=== PATIENT | male | born 1960 | race Caucasian/White ===

== ENCOUNTER → 2016-08-08 | Outpatient (CLI) | payer BC ==
--- NOTE | 2016-08-09 08:53 | MR ---
EXAMINATION TYPE: MR ankle LT wo con, MR foot LT wo con DATE OF EXAM: 08/08/2016 9:21 PM COMPARISON: NONE HISTORY: Left ankle pain (accession [id number]), PAIN IN LEFT FOOT, HALLUX RIGIDUS LT FOOT (accession [id number]) Standard multiplanar, multisequence MRI departmental protocol Multiplanar, multisequence images of the left ankle and foot were acquired. Diffusion weighted imagin g was performed. FINDINGS: Distal Achilles tendon is not included in [id number] on sagittal images but appears with in normal limits on other sequences. Visualized plantar fascia is intact. Some increased fluid is not ed focally medially at level of mid calcaneus on axial image 11. The anterior tibiofibular and anterior talofibular ligaments are intact. Normal sinus tarsi fat is se en. The peroneus longus tendon is intact. There is split type tear of the peroneal brevis tendon seen bes t on axial images 15 through 17 just below level of the lateral malleolus which reconstitutes distall y with distal attachment maintained at base of fifth metatarsal. There is moderate tibiotalar joint effusion. There is more focal fluid surrounding the FHL at level o f the posterior talus on axial image 22. Some additional fluid surrounds the posterior tibial tendon at level of medial malleolus. Extensor tendons anteriorly are intact. Ankle mortise symmetry is preserved. Bone marrow signal inten sity is maintained. There is some spurring at anterior calcaneal articulation with the cuboid bone. T here is mild spurring throughout the cuneiforms. There is small to moderate joint fluid at first metatarsal phalangeal joint. Joint space loss with mi ld spurring laterally is present. No significant subchondral cystic change or abnormal edema seen. No suspicious dorsal osteophytes noted. Flexion or hammertoe type deformity in second through fifth toes is noted. Bone marrow signal intensi ty is preserved. Muscle bulk is maintained. No worrisome solid or cystic mass or fluid collection is identified. Lisfranc joints are maintained. IMPRESSION: 1. Moderate to severe tenosynovitis of FHL. Mild tendinosis/tenosynovitis of PT. 2. Focal split type tear of the peroneus brevis tendon. 3. Degenerative changes first metatarsophalangeal joint as noted above. Hammertoe type deformity of s econd through fifth toes is noted.
== END | disposition home or self-care (01) ==
LOC: RADMRIMAIN 20:05
PROVIDERS: ATTEND Orthopaedic Surgery
DX: M20.21 Hallux rigidus, right foot (principal); M20.22 Hallux rigidus, left foot; M77.41 Metatarsalgia, right foot; M77.42 Metatarsalgia, left foot; M21.6X1 Other acquired deformities of right foot; M21.6X2 Other acquired deformities of left foot; M65.9 Synovitis and tenosynovitis, unspecified; M20.42 Other hammer toe(s) (acquired), left foot

== ENCOUNTER → 2016-08-09 | Outpatient (CLI) | payer BC ==
--- NOTE | 2016-08-09 22:10 | MR ---
EXAMINATION TYPE: MR ankle RT wo con, MR foot RT wo con DATE OF EXAM: 08/09/2016 9:11 PM COMPARISON: NONE HISTORY: M79.671,M20.21,M77.41,M21.6X1 PAIN RT FOOT and ANKLE HALLUX Standard multiplanar, multisequence MRI departmental protocol Multiplanar, multisequence images of th e right ankle and foot were acquired. Diffusion weighted imaging was performed. FINDINGS: The Achilles tendon is intact. Small amount of fluid is seen anterior to the Achilles tendon at the c alcaneal insertion. Visualized plantar fascia is intact. No significant plantar dorsal calcaneal spur formation identified. The anterior tibiofibular and anterior talofibular ligaments are intact. Normal sinus tarsi fat is se en. The peroneus longus tendon is intact. The peroneal brevis tendon is intact. There is mild tibiotalar joint effusion. There is focal fluid surrounding the FHL at level of the po sterior talus felt to reflect tenosynovitis. Some additional fluid surrounds the posterior tibial ten don at level of medial malleolus. Extensor tendons anteriorly are intact. Ankle mortise symmetry is preserved. Bone marrow signal intensity is maintained. There is some spurri ng at anterior calcaneal articulation with the cuboid bone. There is mild spurring throughout the cun eiforms. There is small to moderate joint fluid at first metatarsal phalangeal joint. Joint space los s with mild spurring laterally is present. Mild subchondral cystic changes identified. No suspicious dorsal osteophytes noted. Flexion or hammertoe type deformity in second through fifth toes is noted. Bone marrow signal intensity is preserved. Muscle bulk is maintained. No worrisome solid or cystic ma ss or fluid collection is identified. Lisfranc joints are maintained. IMPRESSION: 1. Moderate tendinosis of FHL. 2. Degenerative changes first metatarsophalangeal joint as noted above. Hammertoe type deformity of s econd through fifth toes is noted.
== END | disposition home or self-care (01) ==
LOC: RADMRIMAIN 20:15
PROVIDERS: ATTEND Orthopaedic Surgery
DX: M20.41 Other hammer toe(s) (acquired), right foot (principal); M67.873 Other specified disorders of tendon, right ankle and foot; M77.41 Metatarsalgia, right foot; M20.21 Hallux rigidus, right foot; M21.6X1 Other acquired deformities of right foot; M20.22 Hallux rigidus, left foot; M77.42 Metatarsalgia, left foot; M21.6X2 Other acquired deformities of left foot

== ENCOUNTER → 2019-11-21 | Outpatient (CLI) | payer BC ==
--- NOTE | 2019-11-21 19:38 | CONS ---
CONSULTATION DATE OF SERVICE: 11/21/2019 This patient is a 59-year-old gentleman who has been evaluated in Sleep Center for possible obstructive sleep apnea-hypopnea syndrome. HISTORY OF PRESENT ILLNESS/SLEEP-WAKE EVALUATION: Patient's usual sleep schedule on working days is from 10 p.m. to 5:46 a.m. and on weekends from 10 or 11 p.m. until 7 or 7:10 a.m. Sometimes he has problems with falling asleep. He has a TV set in the bedroom. He usually sleeps on the side position. According to his , he snores and has episodes of stopped breathing during sleep. The patient wakes up from sleep with episodes of palpitations. In the morning the patient wakes up tired, usually does not take naps. [place] Sleepiness Scale is 4. PAST MEDICAL HISTORY: Positive for episodes of atrial fibrillation, anxiety, hypothyroidism. PAST SURGICAL HISTORY: Knee surgery. MEDICATIONS: Escitalopram, levothyroxine. SOCIAL HISTORY: Negative for smoking. Alcohol consumption is occasional. FAMILY HISTORY: Hypertension, heart problem, emphysema, cancer. REVIEW OF SYSTEMS: Awakenings from sleep around 3 times with one episode of nocturia. Tiredness during the day. PHYSICAL EXAMINATION: GENERAL: A pleasant 59-year-old gentleman without distress. VITAL SIGNS: BP 143/76, HR 62, RR 16, height 5 feet 11-1/2 inches, weight 217, BMI 29.8, temperature 98.2, oxygen saturation at room air 96%. HEENT: PERRLA, EOMI. Evaluation of oropharynx showed tongue protrudes midline. Low position of soft palate. Mallampati III to IV. NECK: Supple. No JVD. Thyroid is not palpable. Neck measures 16 inches in circumference. LUNGS: Clear to percussion and to auscultation. Good air exchange. No wheezing or rhonchi. HEART: S1, S2 regular. No murmurs, gallops or rubs. ABDOMEN: Soft and nontender. Bowel sounds are present. No organomegaly. EXTREMITIES: No clubbing or cyanosis. COST CONSULTANT: Awake, alert, and oriented X3. Cranial nerves 2 to 7 intact. There is no fasciculation or atrophy. noted. No focal deficits observed. IMPRESSION: 1. Snoring, witnessed episodes of stopped breathing during sleep, low position of soft palate; obstructive sleep apnea-hypopnea syndrome. 2. History of atrial fibrillation. 3. Overweight. 4. Hypothyroidism. 5. Anxiety. 6. Status post knee surgery. PLAN: 1. Home sleep apnea test for evaluation of patient's breathing during sleep. 2. CPAP/BiPAP titration if sleep study confirms obstructive sleep apnea-hypopnea syndrome. 3. Preferable position during sleep on the side. 4. No driving if patient feels any sleepiness. 5. I will see patient for follow up visit to explain results of testing and following plan. Thank you very much for referring this patient for consultation. Sincerely, Jonathan Swan MD, PhD, FAASM Diplomat of [employer] Board of [employer] Medicine Rn Digestive of [facility] [place] MMODL / IJN: [id number] /
== END | disposition home or self-care (01) ==
LOC: SLEEP 15:49
PROVIDERS: ATTEND Internal Medicine
DX: G47.33 Obstructive sleep apnea (adult) (pediatric) (principal); E03.9 Hypothyroidism, unspecified; F41.9 Anxiety disorder, unspecified; E66.3 Overweight; Z79.899 Other long term (current) drug therapy; Z86.79 Personal history of other diseases of the circulatory system
CPT/HCPCS: 99211

== ENCOUNTER → 2020-02-20 | Outpatient (CLI) | payer BC ==
--- NOTE | 2020-02-21 01:02 | SFUN ---
SLEEP CENTER FOLLOW UP NOTE DATE OF SERVICE: 02/20/2020 This 59-year-old gentleman has been followed in Sleep Center for treatment of obstructive sleep apnea-hypopnea syndrome. Recently, patient had home sleep apnea test which showed apnea-hypopnea index 24.4 with oxygen desaturation to 83% and patient was started on treatment with auto PAP therapy. Today is his first visit while he is on treatment with CPAP. Patient feels better with CPAP, using it every night. Sometimes has a little bit problem with full-face mask because it might have a little bit leak to the eye area. Otherwise, again, he feels better. [place] Sleepiness Scale today is 2. I checked CPAP unit, it is an automatic regimen with a pressure range of 5 to 20 cm of water. Average pressure 9.6 cm of water. Usage is 27 out of 30 nights more than 4 hours. Average usage is 6.2 hours per night. Leak is up to 37 L/minute. At the same time, apnea-hypopnea index only 1.5, which is perfect. MEDICATIONS: Escitalopram, levothyroxine. PHYSICAL EXAMINATION: GENERAL: Patient in no distress. VITAL SIGNS: BP 146/89, HR 61, RR 15, weight 220.2, temperature 98.1, oxygen saturation at room air 97%. HEENT: PERRLA, EOMI. Oropharynx low position of soft palate. Mallampati 3-4. NECK: Supple, no JVD. Thyroid is not palpable. LUNGS: Clear to percussion and to auscultation. Good air exchange. No wheezing or rhonchi. HEART: S1, S2 regular. No murmurs, gallops, or rubs. ABDOMEN: Soft and nontender. Bowel sounds are present. No organomegaly appreciated. EXTREMITIES: No clubbing or cyanosis. DIGITAL MARKETING EXECUTIVE: Awake, alert, and oriented X3. Cranial nerves 2 to 7 intact. There is no fasciculation or atrophy. noted. No focal deficits observed. IMPRESSION: 1. Obstructive sleep apnea-hypopnea syndrome; apnea-hypopnea index 24.4 on control with auto PAP. The patient demonstrated good compliance with treatment, benefitting from treatment. 2. History of atrial fibrillation. 3. Hypothyroidism. 4. Anxiety. 5. Status post knee surgery. 6. Some overweight. PLAN: 1. I decreased maximal level of CPAP pressure range down to 14. 2. I adjusted humidity slightly up to the level of 5. 3. I discussed with the patient the possibility to use a different style of full face mask which goes under the nose and covers the mouth like Amanda Sena. 4. Patient will continue to use PAP equipment every night for the whole night. 5. Sleep hygiene with regular time in bed for at least 7-1/2 to 8 hours. 6. Precautions related to driving. No driving if feeling sleepiness. 7. I will maintain all necessary prescription for PAP supplies including mask, tube, filters. 8. Watching weight. 9. No driving if feeling sleepiness. 10.Follow-up visit in 6 months or earlier if patient has any problems. Thank you very much for allowing me to participate in management of your patient. Sincerely, Jonathan Swan MD, PhD, FAASM Diplomat of [employer] Specialties [employer] Board of Internal Medicine Bookbinder Apprentice of [facility] [place] MMJONATHANL / JONATHONN: [id number] /
== END | disposition home or self-care (01) ==
LOC: SLEEP 16:33
PROVIDERS: ATTEND Internal Medicine
DX: G47.33 Obstructive sleep apnea (adult) (pediatric) (principal); E66.3 Overweight; E03.9 Hypothyroidism, unspecified; F41.9 Anxiety disorder, unspecified; Z98.890 Other specified postprocedural states; Z86.79 Personal history of other diseases of the circulatory system; Z99.89 Dependence on other enabling machines and devices

== ENCOUNTER → 2020-06-19 | Outpatient (CLI) | payer BC ==
--- NOTE | 2020-06-21 00:21 | MR ---
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 Multiplanar multiecho imaging of the left foot was performed without contrast. The metatarsals are intact. The toes appear intact. I see no focal bone destruction. The tarsal bones are intact. There is no evidence of a fracture. There is mild spurring at the talonavicular joint. T he subtalar joint is intact. Achilles tendon and plantar fascia appear intact. There is diffuse soft tissue edema involving the forefoot. This is more noticeable around the second and third and fourth distal metatarsals. The medial and lateral flexor tendons of the ankle appear in tact. There is some fluid around the flexor pollicis tendon. There is a mild ankle joint effusion. Th ere is focal small area of edema in the inferior talus at the subtalar joint. IMPRESSION: There is forefoot soft tissue edema. This appears similar to old exam. There is fluid around the flex or pollicis tendon not significantly different than old exam. There is mild ankle joint effusion also not significantly different. This is consistent with multifocal nonspecific synovitis. There is small area of edema measuring 8 mm in the lateral inferior talus at the subtalar joint consi stent with degenerative phenomenon. This appears new compared to old exam.
== END ==
LOC: RADMRIMAIN 20:48
PROVIDERS: ATTEND Orthopaedic Surgery
DX: R60.0 Localized edema (principal)

== ENCOUNTER → 2020-09-03 | Outpatient (CLI) | payer BC ==
--- NOTE | 2020-09-04 09:37 | SFUN ---
SLEEP CENTER FOLLOW UP NOTE DATE OF SERVICE: 09/03/2020 This 60-year-old gentleman has been followed in the Sleep Center for treatment of obstructive sleep apnea-hypopnea syndrome. Patient continued to use his CPAP equipment every night for the whole night. He has some discomfort with the full-face mask. He is using masks which covers the mouth and goes under the nose, but the part which goes under the nose has leaked. Otherwise, he sleeps well. No snoring. [place] Sleepiness Scale is only 4, which is normal. I checked his CPAP unit. Range of the pressure 5 to 14, average pressure 13.5, usage 29/30 nights for more than 4 hours, average 5.3 hours per night. Leak is 18 L/minute. Apnea-hypopnea index is 1.2, which is totally normal. MEDICATIONS: Citalopram 5 mg once a day, levothyroxine 50 mcg once a day. PHYSICAL EXAMINATION: GENERAL: Patient is in no distress. VITAL SIGNS: BP 132/65, HR 62, RR 15, height 5 feet 11 inches, weight 220, body mass index 30.6, temperature 98.5, oxygen saturation at room air 96%. HEENT: PERRLA, EOMI. Oropharynx low position of soft palate. Mallampati 3-4. NECK: Supple, no JVD. Thyroid is not palpable. LUNGS: Clear to percussion and to auscultation. Good air exchange. No wheezing or rhonchi. HEART: S1, S2 regular. No murmurs, gallops, or rubs. ABDOMEN: Soft and nontender. Bowel sounds are present. No organomegaly appreciated. EXTREMITIES: No clubbing or cyanosis. SURFACE WATER MANAGER: Awake, alert, and oriented X3. Cranial nerves 2 to 7 intact. There is no fasciculation or atrophy. noted. No focal deficits observed. IMPRESSION: 1. Obstructive sleep apnea-hypopnea syndrome. Original apnea-hypopnea index 24.4 on full control with CPAP. The patient demonstrated great compliance with treatment, benefitting from treatment. 2. Some discomfort with full face mask and leak. 3. History of atrial fibrillation. 4. Hypothyroidism. 5. Anxiety. 6. Status post knee surgery. 7. Mild obesity, body mass index 30.6. PLAN: 1. We fitted the patient with AirFit F20 full face mask and looks that it fits better than his present mask. 2. Patient will continue to use PAP equipment every night for the whole night. 3. Sleep hygiene with regular time in bed for at least 7-1/2 to 8 hours. 4. Precautions related to driving. No driving if feeling sleepiness. 5. I will maintain all necessary prescription for PAP supplies including mask, tube, filters. 6. Watching weight. 7. Follow-up visit in 6 months or earlier if patient has any problems. I spent with the patient in documentation for the visit more than 30 minutes. Thank you very much for allowing me to participate in management of your patient. Sincerely, Jonathan Swan MD, PhD, FAASM Diplomat of [employer] [employer] Specialties [employer] [employer] of Internal Medicine Bill Poster Installer of [facility] [place] MMODL / JONATHONN: [id number] /
== END ==
LOC: SLEEP 16:42
PROVIDERS: ATTEND Internal Medicine
DX: G47.33 Obstructive sleep apnea (adult) (pediatric) (principal); I48.91 Unspecified atrial fibrillation; E03.9 Hypothyroidism, unspecified; F41.9 Anxiety disorder, unspecified; E66.9 Obesity, unspecified; Z68.30 Body mass index [BMI] 30.0-30.9, adult; Z98.890 Other specified postprocedural states; Z79.890 Hormone replacement therapy; Z79.899 Other long term (current) drug therapy

== ENCOUNTER → 2021-06-17 | Outpatient (CLI) | payer BC ==
--- NOTE | 2021-06-17 18:41 | SFUN ---
SLEEP CENTER FOLLOW UP NOTE DATE OF SERVICE: 06/17/2021 This 60-year-old gentleman has been followed in Sleep Center for treatment of obstructive sleep apnea-hypopnea syndrome. The patient continues to use CPAP equipment every night and feels that the pressure in his CPAP unit is now slightly less than before. Otherwise, he sleeps well. No snoring. [place] Sleepiness Scale today is 2. I checked his CPAP unit. Range of the pressure is 5 to 14, average pressure 13.4. Usage is 29/30 nights for more than 4 hours, average 6.2 hours per night, which is good compliance. Leak is 26 L/minute, which is borderline. Apnea-hypopnea index is only 1.0, which is absolutely normal. MEDICATIONS: 1. Escitalopram 5 mg once a day. 2. Levothyroxine 50 mcg once a day. PHYSICAL EXAMINATION: GENERAL: Pleasant patient in no distress. VITAL SIGNS: BP 168/93, HR 62, RR 16, height 6 feet 0 inches, weight 232, BMI 31.4, temperature 98.4, oxygen saturation 98%. HEENT: PERRLA, EOMI, evaluation of oropharynx showed tongue protrudes midline. Low position of soft palate; Mallampati III to IV. NECK: Supple, no JVD. Thyroid is not palpable. LUNGS: Clear to percussion and to auscultation. Good air exchange. No wheezing or rhonchi. HEART: S1, S2 regular. No murmurs, gallops, or rubs. ABDOMEN: Soft and nontender. Bowel sounds are present. No organomegaly appreciated. EXTREMITIES: No clubbing or cyanosis. MONUMENT INSTALLER: Awake, alert, and oriented X3. Cranial nerves 2 to 7 intact. There is no fasciculation or atrophy. noted. No focal deficits observed. IMPRESSION: 1. Obstructive sleep apnea-hypopnea syndrome. Original apnea-hypopnea index 24.4. The patient demonstrated practically 100% compliance with treatment, benefitting from treatment. 2. Hypertension in the office. 3. History of atrial fibrillation episodes. No recent episodes. 4. Hypothyroidism. 5. Anxiety. 6. Status post knee surgical treatment bilaterally. 7. Status post bilateral foot surgery. PLAN: 1. Patient will continue to use PAP equipment every night for the whole night. 2. Sleep hygiene with regular time in bed for at least 7-1/2 to 8 hours. 3. Precautions related to driving. No driving if feeling sleepiness. 4. I will maintain all necessary prescription for PAP supplies including mask, tube, filters. 5. Watching weight. 6. Follow-up visit in 6 months or earlier if patient has any problems. Thank you very much for allowing me to participate in the management of your patient. Sincerely, Jonathan Swan MD, PhD, FAASM Diplomat of [place] [employer] Medical Specialties Sleep Medicine Board of [place] Board of Internal Medicine Physical Therapy Aides Teacher of [facility] [place] MMODL / DARLENE: [id number] /
== END ==
LOC: SLEEP 16:30
PROVIDERS: ATTEND Internal Medicine
DX: G47.33 Obstructive sleep apnea (adult) (pediatric) (principal); I10 Essential (primary) hypertension; I48.91 Unspecified atrial fibrillation; E03.9 Hypothyroidism, unspecified; F41.9 Anxiety disorder, unspecified; Z98.890 Other specified postprocedural states; Z79.890 Hormone replacement therapy; Z79.899 Other long term (current) drug therapy

== ENCOUNTER → 2022-01-06 | Outpatient (CLI) | payer BC ==
--- NOTE | 2022-01-06 16:55 | P.PN ---
Subjective DATE: 01/06/2022 FOLLOW UP VISIT. Patient with obstructive sleep apnea hypopnea syndrome return to sleep center for follow-up visit. Information from previous visit have been reviewed. Patient is using PAP equipment every night for the whole night, getting PAP supplies in time. The patient does not have significant problems with the mask, PAP unit and humidification. [place] sleepiness scale is 4. I checked PAP unit. PAP unit pressure 5-14, average 13.5 cm H2O. Usage is 95 % for more then 4 hours, average 5.3 hours per night. Leak is 10 l/m, which is in acceptable range. Apnea Hypopnea Index is 2.0, which is normal. MEDICATIONS:1. Esitalopram 5 mg once a day 2. Levothyroxine 50 g once a day During physical exam: GENERAL: A pleasant patient without any distress. VITAL SIGNS: BP 132/81, HR 71, RR 14 , weight 231, height 6 foot and 0 inches, oxygen saturation at room air 95 % . HEENT: PERRLA, EOMI.low position of soft palate, Mallapati 3-4 . NECK: Supple. No JVD. LUNGS: Clear to percussion and to auscultation. Good air exchange. No wheezing or rhonchi. HEART: S1, S2 regular. ABDOMEN: Soft and nontender.[] EXTREMITIES: No clubbing or cyanosis. SLOT FLOOR SUPERVISOR: Awake, alert, and oriented x3. No focal deficit. Impressions: 1. Obstructive sleep apnea-hypopnea syndrome. Patient demonstrated great compliance with treatment, benefiting from treatment. 2. History of lateral fibrillation episodes. No recent episodes. 3. Hypothyroidism. 4. Anxiety. 5. Status post bilateral knee surgery. 6. Status post bilateral foot surgery. Plan: 1. Continue using PAP equipment every night for the whole night. 2. To change air filter at least 1-2 times per month. 3. PAP unit should stay lower then position of the head. 4. Advised patient to remove all remaining water from humidifier canister daily and make it dry after each usage. Refill canister with fresh distilled water before each usage. 5. Sleep hygiene with regular time in bed for at least 8 hours. 6. Precautions related to driving. No driving if feel any sleepiness. 7. I will maintain prescription for PAP supplies including mask, tube, filters. 8. Follow up visit in 6 months or earlier if patient has any problems. 9. Watching weight. Thank you very much for allowing me to participate in the management of your patient. Jonathan Swan MD, PhD, FAASM. Diplomat of [place] [employer] Sleep Medicine, Sleep Medicine Board by [place] [employer] of Internal Medicine Licensed Weigher of [facility] [place]
== END ==
LOC: SLEEP 16:20
PROVIDERS: ATTEND Internal Medicine
DX: G47.33 Obstructive sleep apnea (adult) (pediatric) (principal); Z99.89 Dependence on other enabling machines and devices; E03.9 Hypothyroidism, unspecified; F41.9 Anxiety disorder, unspecified; Z98.890 Other specified postprocedural states; Z79.890 Hormone replacement therapy; Z86.79 Personal history of other diseases of the circulatory system; Z79.899 Other long term (current) drug therapy

== ENCOUNTER → 2022-10-06 | Outpatient (CLI) | payer BC ==
--- NOTE | 2022-10-06 17:28 | P.PN ---
Subjective DATE: 10/06/2022 FOLLOW UP VISIT. Patient with obstructive sleep apnea hypopnea syndrome return to sleep center for follow-up visit. Information from previous visit have been reviewed. Patient had been planned by arabic translator team for cardiac ablation procedure for atrial flutter. Patient is using PAP equipment every night for the whole night, getting PAP supplies in time. The patient does not have significant problems with the mask, PAP unit. Patient is experiencing dryness in his mouth while using CPAP. [place] sleepiness scale is 5, which is normal. I checked information from PAP unit. PAP unit pressure 5-14, average pressure 13.8 cm H2O. Usage is 87 % for more then 4 hours, average 5.7 hours per night. Leak is increased to 32.6 l/m. Apnea Hypopnea Index is average for the last months 5.4, but for last several nights significantly increased to about 20. MEDICATIONS:1. Levothyroxine 50 g once a day 2. Metoprolol 100 mg twice a day 3. Escitalopram 10 mg once a day 4. Rosuvastatin 5 mg once a day 5. Eliquis 5 mg twice a day During physical exam: GENERAL: A pleasant patient without any distress. VITAL SIGNS: BP 100/73, HR 124, RR 12 , weight 233, temperature 96.7, oxygen saturation at room air 97 % . HEENT: PERRLA, EOMI.low position of soft palate, Mallapati 3-4 . NECK: Supple. No JVD. LUNGS: Clear to percussion and to auscultation. Good air exchange. No wheezing or rhonchi. HEART: S1, S2 regular. ABDOMEN: Soft and nontender.[] EXTREMITIES: No clubbing or cyanosis. MILK RECEIVER TANK TRUCK: Awake, alert, and oriented x3. No focal deficit. Impressions: 1. Obstructive sleep apnea-hypopnea syndrome. Patient demonstrated great compliance with treatment, benefiting from treatment, but apnea-hypopnea index significantly increased for last several nights. 2. Atrial flutter. 3. History of hypothyroidism. 4. History of anxiety. 5. Status post bilateral knee surgery. 6. Status post bilateral foot surgery. 7. Patient increased his weight on several pounds since previous visit. Plan: 1. Continue using PAP equipment every night for the whole night. 2. I increased range of the pressure in the CPAP unit to 5-16 centimeters of water. 3. Humidity level was increased to level of 6. Tube temperature was increased to 80. 4. Follow up visit in 2 weeks. Thank you very much for allowing me to participate in the management of your patient. Jonathan Swan MD, PhD, FAASM. Diplomat of [place] [employer] Medicine, Sleep Medicine Board by [place] [employer] of [employer] Medicine Science Education Professor of [facility] [place]
== END ==
LOC: 3 N SLEEP 16:23
PROVIDERS: ATTEND Internal Medicine
DX: G47.33 Obstructive sleep apnea (adult) (pediatric) (principal); E03.9 Hypothyroidism, unspecified; I48.92 Unspecified atrial flutter; F41.9 Anxiety disorder, unspecified; Z96.653 Presence of artificial knee joint, bilateral; Z98.890 Other specified postprocedural states; Z99.89 Dependence on other enabling machines and devices; Z79.890 Hormone replacement therapy; Z79.899 Other long term (current) drug therapy

== ENCOUNTER → 2022-10-27 | Outpatient (CLI) | payer BC ==
--- NOTE | 2022-10-27 17:57 | P.PN ---
Subjective DATE: 10/27/2022 FOLLOW UP VISIT. Patient with obstructive sleep apnea hypopnea syndrome return to sleep center for follow-up visit. I saw patient 2 weeks ago. At that time because apnea-hypopnea index significantly increased from 4 several months ago to around 20 per hour I changed level of CPAP pressure from 514 to 516 centimeters of water. [place] sleepiness scale today is 3, which is normal. I checked information from PAP unit. PAP unit pressure 5-16, average 13.8 cm H2O. Usage is 100 % for more then 4 hours, average 5 hours per night. Leak is high 35 l/m. Apnea Hypopnea Index is significantly increased to 20.2, which include 3.1 central events per hour, 6.6 obstructive events, 10.4 unknown and 2.1 RERA. MEDICATIONS:1. Metoprolol 100 mg twice a day 2. Escitalopram 10 mg once a day 3. Eliquis 5 mg twice a day 4. Rosuvastatin 5 mg once a day 5. Levothyroxine 50 g once a day During physical exam: GENERAL: A pleasant patient without any distress. VITAL SIGNS: BP 112/80, HR 127, RR 12, weight 233, temperature 97.3, oxygen saturation at room air 96 % . HEENT: PERRLA, EOMI.low position of soft palate, Mallapati 3 . NECK: Supple. No JVD. LUNGS: Clear to percussion and to auscultation. Good air exchange. No wheezing or rhonchi. HEART: S1, S2 . irregular. ABDOMEN: Soft and nontender.[] EXTREMITIES: No clubbing or cyanosis. LAMP SHADES SUPERVISOR: Awake, alert, and oriented x3. No focal deficit. Impressions: 1. 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 Central component possibly secondary to cardiac arrhythmia. Patient demonstrated great compliance with treatment. 2. Atrial flutter, patient is preparing for cardiac ablation procedure. 3. History of hypothyroidism. 4. History of anxiety. 5. Status post bilateral knee surgery. 6. Status post bilateral foot surgery. Plan: 1. PAP titration for correction of respiratory abnormalities during sleep, patient may need BiPAP ST mode therapy for correction of central abnormalities of respiration. Patient is on treatment with AutoPap, never had Pap titration. 2. Continue using PAP equipment every night for the whole night. 3. PAP unit should stay lower then position of the head. 4. Advised patient to remove all remaining water from humidifier canister daily and make it dry after each usage. Refill canister with fresh distilled water b efore each usage. 5. Sleep hygiene with regular time in bed for at least 8 hours. 6. Precautions related to driving. No driving if feel any sleepiness. 7. I will maintain prescription for PAP supplies including mask, tube, filters. 8. Follow up visit to discuss results of sleep test after titration. Thank you very much for allowing me to participate in the management of your patient. Jonathan Swan MD, PhD, FAASM. Diplomat of [place] [employer], Sleep Medicine Board by [place] [employer] Licensed Optician of [facility] [place]
== END ==
LOC: 3 N SLEEP 16:31
PROVIDERS: ATTEND Internal Medicine
DX: G47.33 Obstructive sleep apnea (adult) (pediatric) (principal); I48.92 Unspecified atrial flutter; E03.9 Hypothyroidism, unspecified; F41.9 Anxiety disorder, unspecified; Z98.890 Other specified postprocedural states; Z99.89 Dependence on other enabling machines and devices; Z79.01 Long term (current) use of anticoagulants; Z79.890 Hormone replacement therapy; Z79.899 Other long term (current) drug therapy
CPT/HCPCS: 99212

== ENCOUNTER 2022-11-07 08:46 | Day surgery (SDC) | payer BC ==
[2022-11-03 13:21] VITALS: BMI 30.4
[~2022-11-07 08:46] MED LIST: LACTATED RINGERS 1,000 ML IV SCH; SODIUM CHLORIDE 0.9% 1,000 ML IV SCH
[2022-11-07] MEDS ORDERED: GLYCOPYRROLATE 0.2 MG/ML 2 ML VIAL ONE (10:29)
[2022-11-07] MEDS ORDERED: HEPARIN SODIUM,PORCINE 10,000 UNIT/ML 1 ML VIAL ONE (10:29)
[2022-11-07] MEDS ORDERED: ISOPROTERENOL 250 MCG/1.25 ML SYR IV ONE (10:29)
[2022-11-07] MEDS ORDERED: fentaNYL (PF) 50 MCG/ML 2 ML AMP ONE (10:29)
[2022-11-07] MEDS ORDERED: ROCURONIUM 10 MG/ML (5 ML VIAL) IV ONE (10:29)
[2022-11-07] MEDS ORDERED: NEOSTIGMINE 1 MG/ML 10 ML VIAL ONE (10:29)
[2022-11-07] MEDS ORDERED: LIDOCAINE 2% INJ 20 MG/ML (2 ML VIAL) ONE (10:29)
[2022-11-07] MEDS ORDERED: PHENYLEPHRINE-0.9% NACL SYG 1,000 MCG/10 ML SYRINGE ONE (10:29)
[2022-11-07] MEDS ORDERED: SUCCINYLCHOLINE CHLORIDE 200 MG/10 ML VIAL IV ONE (10:29)
[2022-11-07] MEDS ORDERED: MIDAZOLAM 2 MG/2 ML VIAL ONE (10:29)
[2022-11-07] MEDS ORDERED: PROPOFOL 10 MG/ML 20 ML VIAL IV ONE (10:29)
[2022-11-07] MEDS ORDERED: LIDOCAINE 1% INJ 10MG/ML (30 ML VIAL-PF) SQ ONE (11:14)
[2022-11-07] MEDS ORDERED: HEPARIN SODIUM (1,000 UNIT/ML) 1,000 UNIT in SODIUM CHLORIDE 0.9% 1,000 ML IRRIGATION ONE (12:41)
[2022-11-07] MEDS ORDERED: ACETAMINOPHEN IV (For NPO) 1,000 MG in EMPTY BAG 1 BAG IVPB ONE (13:11)
[2022-11-07] MEDS ORDERED: ACETAMINOPHEN TAB 325 MG TAB PO PRN (13:11)
--- NOTE | 2022-11-07 13:20 | P.HPCAR ---
History of Present Illness This is Dr. Rosado dictating an H/P on this patient The patient was interviewed and examined IMPRESSION / ASSESSMENT: Typical atrial flutter with RVR despite high dose metoprolol Inability to control heart rates Symptomatic with shortness of breath Paroxysmal atrial fibrillation on flecainide 100 mg twice daily Hypertension Obstructive sleep apnea, AHI around 24 PLAN: Proceed with atrial flutter ablation Continue flecainide thereafter Continue ELIQUIS for at least 2-3 months Continue sleep apnea management with CPAP HPI Patient's heart rates remained elevated despite metoprolol taken 4 times a day Shortness of breath but no chest discomfort or loss of consciousness He has had no fever chills cough expectoration ROS: No fever chills or rigors, no cough, phlegm or expectoration, no nausea, vomiting or diarrhea, no hematuria, dysuria, no musculoskeletal complaints, no strokes or seizures, no skin lesions. EXAMINATION: Heart rate 130 beats a minute at rest respirations normal blood pressure 120 May 23. His mercury Heart sounds are tachycardic no murmurs Lungs sounds are clear no rhonchi no crackles No JVD No lower extremity edema REVIEW OF LABS, ECG & MEDICAL DATA Currently on ELIQUIS and metoprolol Physical Exam Vitals: Vital Signs Pulse Resp BP Pulse Ox 11/07/22 09:21 129 H 18 125/86 98 Intake and Output 11/06/22 11/07/22 11/07/22 22:59 06:59 14:59 Intake Total 1219 Balance 1219 Intake: IV 1219 Other: Weight 104.6 kg Past Medical History Past Medical History: Atrial Fibrillation, Eye Disorder, Hyperlipidemia, Hy pertension, Osteoarthritis (OA), Sleep Apnea/CPAP/BIPAP, Thyroid Disorder Additional Past Medical History / Comment(s): Slight macular degeneration. Uses CPAP. History of Any Multi-Drug Resistant Organisms: None Reported Past Surgical History: Orthopedic Surgery Additional Past Surgical History / Comment(s): Bilateral foot surgery, bilateral knee surgery, colonoscopy. Past Anesthesia/Blood Transfusion Reactions: No Reported Reaction Past Psychological History: Anxiety Smoking Status: Never smoker Past Alcohol Use History: Daily Additional Past Alcohol Use History / Comment(s): Normally has 1 drink daily, however has had no alcohol in the last 6 weeks. Past Drug Use History: None Reported - Past Family History Father Family Medical History: Cancer Additional Family Medical History / Comment(s): Colon cancer. Physical Examination Vital Signs Pulse Resp BP Pulse Ox 11/07/22 09:21 129 H 18 125/86 98 Intake and Output 11/06/22 11/07/22 11/07/22 22:59 06:59 14:59 Intake Total 1219 Balance 1219 Intake: IV 1219 Other: Weight 104.6 kg Results Current Medications Generic Name Dose Route Start Last Admin Trade Name Freq PRN Reason Stop Dose Admin Acetaminophen 650 mg 11/07/22 13:11 Acetaminophen Tab 325 Mg Tab PO 12/07/22 13:12 Q6HR PRN Mild Pain (Scale 1 to 3) Apixaban 5 mg 11/07/22 21:00 Apixaban 5 Mg Tab PO 12/07/22 21:01 BID [facility] Protocol Flecainide Acetate 50 mg 11/07/22 21:00 Flecainide 50 Mg Tab PO 12/07/22 21:01 Q12HR [facility]OL[facility] Acetaminophen 1,000 mg/ IV 100 mls @ 400 mls/hr 11/07/22 13:11 Solution IVPB 11/07/22 13:25 ONCE ONE Levothyroxine Sodium 50 mcg 11/08/22 09:00 Levothyroxine 50 Mcg Tab PO 12/08/22 09:01 DAILY [facility] Losartan Potassium 25 mg 11/08/22 09:00 Losartan 25 Mg Tab PO 12/08/22 09:01 DAILY [facility] Metoprolol Tartrate 25 mg 11/07/22 21:00 Metoprolol Tartrate 50 Mg Tab PO 12/07/22 21:01 BID [facility] Non-Formulary Medication 5 mg 11/07/22 21:00 Rosuvastatin Calcium [Rosuvastatin Calcium] PO 12/07/22 21:01 HS [facility] Sodium Chloride 12 ml 11/07/22 13:11 Sodium Chloride 0.9% Flush 10 Ml Syringe IV 12/07/22 13:12 Q12HR PRN Line Flush Intake and Output 11/06/22 11/07/22 11/07/22 22:59 06:59 14:59 Intake Total 1219 Balance 1219 Intake: IV 1219 Other: Weight 104.6 kg Patient Weight 11/08/22 06:59 Weight 104.6 kg
--- NOTE | 2022-11-07 13:26 | P.EPPROC ---
- EP Procedure Note Electrophysiology Procedure Note: Diagnosis Typical atrial flutter with RVR, difficult rate control despite high dose of metoprolol 4 times a day Paroxysmal atrial fibrillation, on flecainide Hypertension, sleep apnea Final results Typical atrial flutter confirmed with entrainment mapping Successful radio frequency ablation, complete bidirectional block with differential pacing Biatrial enlargement, preserved LV systolic function, on intracardiac echo No left atrial appendage thrombus, large left atrial appendage on intracardiac echo Long cavo tricuspid isthmus Abnormal sinus node function Plan Continue ELIQUIS for 2-3 months Resume flecainide for suppression of atrial fibrillation Sleep apnea management Restart antihypertensive therapy with losartan Reduce metoprolol to 25 g twice daily Continue flecainide 100 mg twice daily for now Details Patient was brought to the EP lab in a fasting state. Written informed consent was obtained prior to the procedure. General anesthesia is provided Reinitiatethe right left femoral veins Diagnostic catheters and mapping and ablation cath was replaced. Intracardiac echo catheter was placed Patient was in the tachycardia, cycle length 240 ms Entrainment mapping was performed for the cavo tricuspid isthmus and cavo tricuspid isthmus dependency was confirmed Electrical cardioversion was performed Thereafter the cavo tricuspid isthmus was mapped with 3-D mapping and intracardiac echo Long cavo tricuspid isthmus RF ablation was performed from the tricuspid annulus to the eustachian ridge Complete anatomic line of block was made Isthmus conduction time prolonged to greater than 175 ms Complete bidirectional block was confirmed with differential pacing Long split potentials noted along the line during pacing Mccormick a diagnostic EP study is performed on and off Isuprel Sinus cycle length was 881 ms, [place] interval 168, QRS 84 and QT 391 ms Age 74 and HV 58 ms VA Wenckebach block for 20 ms AV node Wenckebach block 320 ms Parahisian pacing revealing rigoberto response Sinus node recovery times a prolonged at pacing cycle length of 605 100 ms. Sinus recovery times of 1683 and 1933 ms. Corrected to sinus recovery times prolonged On high-dose Isuprel, no arrhythmias induced. Atrial pacing performed AV node Wenckebach block 220 ms Patient tolerated the procedure well without any acute competitions
--- NOTE | 2022-11-07 13:28 | P.PRLE ---
RE: Moise Clancy Dear Mickey Phipps underwent successful atrial flutter ablation with confirmed bidirectional block with differential pacing. However intracardiac echo revealed biatrial enlargement He does have an abnormal sleep study with moderate obstructive sleep apnea and is on a CPAP past now new. A few will continue anticoagulation for at least 2-3 months I will resume flecainide and perhaps even reduced dose to 50 g twice daily line were also reduced dose of metoprolol to 25 mg twice daily He will resume losartan for hypertension management Thank you for entrusting me with the care of the patient Warm regards Sincerely Darryl Rosado
[2022-11-07] MEDS ORDERED: ATORVASTATIN 10 MG TAB PO SCH (21:00)
[2022-11-07] MEDS: FLECAINIDE 50 MG TAB PO SCH (21:23)
[2022-11-07] MEDS: METOPROLOL TARTRATE 25 MG TAB PO SCH (21:23)
[2022-11-07] MEDS: APIXABAN 5 MG TAB PO SCH (21:23)
[2022-11-08] MEDS ORDERED: LEVOTHYROXINE 50 MCG TAB PO SCH (06:30)
[2022-11-08] MEDS ORDERED: LOSARTAN 25 MG TAB PO SCH (09:00)
[2022-11-08] MEDS: APIXABAN 5 MG TAB PO SCH (09:07)
[2022-11-08] MEDS: FLECAINIDE 50 MG TAB PO SCH (09:20)
[2022-11-08] MEDS: METOPROLOL TARTRATE 25 MG TAB PO SCH (09:20)
[2022-11-08 10:40] VITALS: BP 135/86; PULSE 70; RESP 16; TEMP 98.5
--- NOTE | 2022-11-08 16:39 | P.DS ---
Providers Attending physician: Darryl Rosado Primary care physician: [facility] Course: Moise is resting comfortably in bed. He has been ambulating in the hallways and in his room Groins of healed well Denies any pleuritic chest discomfort and dizziness lightheadedness or palpitati ons Breath sounds are clear Normal heart sounds, no murmurs No JVD Groins of healed well no hematoma Impression Typical atrial flutter Status post atrial flutter ablation Hypertension Obstructive sleep apnea Biatrial enlargement with preserved LV systolic function Plan Continue ELIQUIS for 2-3 months Start flecainide and use only on a when necessary basis for A. fib The patient has biatrial enlargement/dilatation on intracardiac echo He also has obstructive sleep apnea, moderate Recommend minimize alcohol consumption, treatment of sleep apnea, treatment of hypertension He will resume losartan 25 mg by mouth daily as before We will see him in the office in about a week's time Plan - Discharge Summary Discharge Rx Participant: No New Discharge Prescriptions: New Losartan [Cozaar] 25 mg PO DAILY #90 tab No Action Levothyroxine Sodium [Synthroid] 50 mcg PO DAILY Vit C/E/Zn/Coppr/Lutein/Zeaxan [Preservision Areds 2 Softgel] 1 each PO DAILY Escitalopram [Lexapro] 10 mg PO DAILY Rosuvastatin Calcium 5 mg PO HS Metoprolol Tartrate [Lopressor] 50 mg PO QID Apixaban [Eliquis] 5 mg PO BID Discharge Medication List Levothyroxine Sodium [Synthroid] 50 mcg PO DAILY 05/27/21 [History] Vit C/E/Zn/Coppr/Lutein/Zeaxan [Preservision Areds 2 Softgel] 1 each PO DAILY 05/27/21 [History] Apixaban [Eliquis] 5 mg PO BID 11/03/22 [History] Escitalopram [Lexapro] 10 mg PO DAILY 11/03/22 [History] Metoprolol Tartrate [Lopressor] 50 mg PO QID 11/03/22 [History] Rosuvastatin Calcium 5 mg PO HS 11/03/22 [History] Losartan [Cozaar] 25 mg PO DAILY #90 tab 11/08/22 [Rx] Follow up Appointment(s)/Referral(s): Darryl Rosado MD [STAFF PHYSICIAN] - 11/16/22 9:15 am Patient Instructions/Handouts: Cardiac Ablation (DC), Electrophysiology Study (DC) Discharge Disposition: HOME SELF-CARE
== END 2022-11-08 10:55 | disposition home or self-care (01) ==
LOC: CATHEP 08:46 → 6NMEDSUR 14:06 → CATHEP 11-08 10:55
PROVIDERS: ATTEND Internal Medicine Clinical Cardiac Electrophysiology
DX: I48.3 Typical atrial flutter (principal); I48.0 Paroxysmal atrial fibrillation; I11.9 Hypertensive heart disease without heart failure; G47.33 Obstructive sleep apnea (adult) (pediatric); Z79.01 Long term (current) use of anticoagulants; E78.5 Hyperlipidemia, unspecified; M19.90 Unspecified osteoarthritis, unspecified site; Z79.899 Other long term (current) drug therapy; Z98.890 Other specified postprocedural states; Z86.59 Personal history of other mental and behavioral disorders; Z88.0 Allergy status to penicillin
CPT/HCPCS: 93623; 93662; 93653; 86900; 86901; 86850; C1759; C1894; C1769; C1760; C1730; C1893; J2250; J0330; J1644 ×2; J2710; J2001 ×2; J3010; J2704; J2371

== ENCOUNTER → 2023-06-21 | Outpatient (CLI) | payer BC ==
--- NOTE | 2023-06-21 17:35 | P.PN ---
Subjective DATE: 06/21/2023 FOLLOW UP VISIT. Patient with obstructive sleep apnea hypopnea syndrome return to sleep center for follow-up visit. Information from previous visit have been reviewed. Patient is using PAP equipment every night for the whole night, getting PAP supplies in time. The patient does not have significant problems with the mask, PAP unit and humidification. [place] sleepiness scale is 3, which is normal. I checked information from PAP unit. PAP unit pressure 5-9, average 8.9 cm H2O. Usage is 98% for more then 4 hours, average 6.2 hours per night. Leak is 29 l/m, which is in acceptable range. Apnea Hypopnea Index is 13.3, which is normal. MEDICATIONS:1. Eliquis 5 mg twice a day 2. Rosuvastatin 5 mg once a day 3. Levothyroxine 50 mcg once a day 4. Losartan 25 mg once a day 5. Escitalopram 10 mg once a day 6. Carvedilol 3.125 mg twice a day During physical exam: GENERAL: A pleasant patient without any distress. VITAL SIGNS: BP 132/65, HR 56, RR 16, weight 231, temperature 98.3, oxygen saturation at room air 96% . HEENT: PERRLA, EOMI.low position of soft palate, Mallapati 3. NECK: Supple. No JVD. LUNGS: Clear to percussion and to auscultation. Good air exchange. No wheezing or rhonchi. HEART: S1, S2 regular. ABDOMEN: Soft and nontender.[] EXTREMITIES: No clubbing or cyanosis. ATTENDANT SALES: Awake, alert, and oriented x3. No focal deficit. Impressions: 1. Obstructive sleep apnea-hypopnea syndrome. Patient demonstrated great compliance with treatment, benefiting from treatment. 2. History of atrial flutter. 3. History of hypothyroidism. 4. History of anxiety. 5. Status post bilateral knee surgery. 6. Status post bilateral foot surgery. I increased pressure in AutoPap unit to the range of 5 to 12 cm of water. Plan: 1. Continue using PAP equipment every night for the whole night. 2. To change air filter at least 1-2 times per month. 3. PAP unit should stay lower then position of the head. 4. Advised patient to remove all remaining water from humidifier canister daily and make it dry after each usage. Refill canister with fresh distilled water before each usage. 5. Sleep hygiene with regular time in bed for at least 8 hours. 6. Precautions related to driving. No driving if feel any sleepiness. 7. I will maintain prescription for PAP supplies including mask, tube, filters. 8. Follow up visit in 3 months or earlier if patient has any problems. 9. Watching weight. Thank you very much for allowing me to participate in the management of your patient. Jonathan Swan MD, PhD, FAASM. Diplomat of [place] [employer], Sleep Medicine Board by [place] [employer] Councilor of [facility] [place]
== END ==
LOC: 3 N SLEEP 16:31
PROVIDERS: ATTEND Internal Medicine
DX: G47.33 Obstructive sleep apnea (adult) (pediatric) (principal); I48.92 Unspecified atrial flutter; E03.9 Hypothyroidism, unspecified; F41.9 Anxiety disorder, unspecified; Z96.653 Presence of artificial knee joint, bilateral; Z99.89 Dependence on other enabling machines and devices; Z96.0 Presence of urogenital implants; Z79.899 Other long term (current) drug therapy; Z79.890 Hormone replacement therapy; Z79.01 Long term (current) use of anticoagulants
CPT/HCPCS: 99212

== ENCOUNTER → 2023-09-15 | Outpatient (CLI) | payer BC ==
--- NOTE | 2023-10-11 15:22 | MR ---
EXAMINATION TYPE: MR foot LT wo con DATE OF EXAM: 09/16/2023 COMPARISON: Previous MRI 06/19/2020 HISTORY: 63-year-old male M72.2, Plantar fascial fibromatosis, Left foot pain heel area and arch x8 y ears TECHNIQUE: Multiplanar, multisequence images of the left foot were obtained without IV contrast. FINDINGS: There is a 1.9 x 1.2 cm ganglion cyst at the knot of Juvenal along the plantar mid foot. Moderate degenerative change along the posterior subtalar joint and suspected mild to moderate along the middle subtalar joint. The tibiotalar joint appears intact. Smooth delineation to the Achilles tendon. There is a [id number] sized plantar heel spur. Thickening at the origin of the plantar fascia up to 7 mm. Scattered muscular edema throughout the foot. Greater degree of edema along the myotendinous junction of the abductor pollicis. Mild degenerative change first MTP joint with small joint effusion, probably reactive. No acute or he aling fracture. Very heterogeneous signal within the region of the sinus Tarsi along with fluid extending from this r egion measuring 1.6 cm. No discrete nodularity seen along the plantar fascia. IMPRESSION: 1. Generalized muscular edema, possibly neuropathic change if there is underlying diabetes. The overa ll degree of edema appears to have diminished from 2020. However, soft tissue edema is somewhat grea ter along the myotendinous junction of the abductor pollicis. Consider the possibility of a muscle st rain. 2. No acute or healing fracture. There is redemonstrated middle and posterior subtalar joint OA, at l east mild to moderate in degree. 3. A ganglion cyst along the plantar mid to hindfoot at the level of the knot of Juvenal measures 1.9 x 1.2 cm, increased from 2020. 4. Fluid and ganglion cyst extending from the sinus tarsi measuring up to 1.6 cm appears similar. 5. New nonspecific moderate tenosynovitis along the inframalleolar peroneal tendons. 6. Mild first MTP joint OA with a reactive small joint effusion. 7. Moderate sized plantar heel spur. Increased thickening at the origin of the plantar fascia now josé suring up to 7 mm. Consider plantar fasciitis. No discrete nodularity along the plantar fascia to williams sonia indicate plantar fibromatosis.
== END | disposition home or self-care (01) ==
LOC: RADMRIMAIN 17:00
PROVIDERS: ATTEND Orthopaedic Surgery
DX: M72.2 Plantar fascial fibromatosis (principal); M67.472 Ganglion, left ankle and foot; M19.072 Primary osteoarthritis, left ankle and foot; M65.072 Abscess of tendon sheath, left ankle and foot; M77.32 Calcaneal spur, left foot

== ENCOUNTER → 2023-09-20 | Outpatient (CLI) | payer BC ==
[2023-09-20 16:09] VITALS: BP 111/57; PULSE 68; RESP 16; TEMP 98.2
--- NOTE | 2023-09-20 16:30 | P.PROGSL ---
Subjective DATE: 09/20/2023 FOLLOW UP VISIT. Patient with obstructive sleep apnea hypopnea syndrome return to sleep center for follow-up visit. Information from previous visit have been reviewed. Patient is using PAP equipment every night for the whole night, getting PAP supplies in time. The patient does not have significant problems with the mask, PAP unit and humidification. [place] sleepiness scale is 2, which is normal. I checked information from PAP unit. PAP unit pressure 5-12, average 9.9 cm H2O. Usage is 93% for more then 4 hours, average 6.75 hours per night. Leak is increased to 36.6 l/m, which is in acceptable range. Apnea Hypopnea Index is 9.1, which decreased comparing to the previous visit, but still above normal range. Central apnea hypopnea index 4.7. MEDICATIONS: Please see below During physical exam: GENERAL: A pleasant patient without any distress. VITAL SIGNS: Please see below. HEENT: PERRLA, EOMI.low position of soft palate, Mallapati 3 . NECK: Supple. No JVD. LUNGS: Clear to percussion and to auscultation. Good air exchange. No wheezing or rhonchi. HEART: S1, S2 regular. ABDOMEN: Soft and nontender.[] EXTREMITIES: No clubbing or cyanosis. LAUNDRY SORTER: Awake, alert, and oriented x3. No focal deficit. Impressions: 1. Obstructive sleep apnea-hypopnea syndrome. Patient demonstrated great compliance with treatment, benefiting from treatment. Reading from CPAP unit showed some central apneas, apnea hypopnea index increased to 9.1 2. History of atrial flutter. 3. History of anxiety. 4. Hypothyroidism. 5. Status post bilateral knee surgery. 6. Status post bilateral foot surgery. I changed pressure in CPAP unit to the range 7 to 15 cm of water. Patient feels that this not enough pressure when he is starting to use CPAP unit and with the goal to normalize breathing. A ramp pressure was also increased to 7 cm of water. I teach the patient how to adjust temperature in humidifier. Plan: 1. Continue using PAP equipment every night for the whole night. 2. To change air filter at least 1-2 times per month. 3. PAP unit should stay lower then position of the head. 4. Advised patient to remove all remaining water from humidifier canister daily and make it dry after each usage. Refill canister with fresh distilled water before each usage. 5. Sleep hygiene with regular time in bed for at least 8 hours. 6. Precautions related to driving. No driving if feel any sleepiness. 7. I will maintain prescription for PAP supplies including mask, tube, filters. 8. Follow up visit in 6 months or earlier if patient has any problems. 9. Watching weight. Thank you very much for allowing me to participate in the management of your patient. Jonathan Swan MD, PhD, FAASM. Diplomat of [place] [employer], Sleep Medicine Board by [place] [employer] Yarn Examiner [facility] [place] Objective - Vital Signs Vital Signs: Vital Signs Temp 98.2 F 09/20/23 16:07 Pulse 68 09/20/23 16:07 Resp 16 09/20/23 16:07 BP 111/57 09/20/23 16:07 Pulse Ox 96 09/20/23 16:07 FiO2 Intake & Output 09/19/23 09/20/23 09/20/23 18:59 06:59 18:59 Weight 98.883 kg Home Medications: Home Medications Medication Instructions Recorded Confirmed Type Levothyroxine Sodium [Synthroid] 50 mcg PO DAILY 05/27/21 09/20/23 History Vit C/E/Zn/Coppr/Lutein/Zeaxan 1 each PO DAILY 05/27/21 11/07/22 History [Preservision Areds 2 Softgel] Apixaban [Eliquis] 5 mg PO BID 11/03/22 09/20/23 History Escitalopram [Lexapro] 10 mg PO DAILY 11/03/22 09/20/23 History Metoprolol Tartrate [Lopressor] 50 mg PO QID 11/03/22 11/07/22 History Rosuvastatin Calcium 5 mg PO HS 11/03/22 09/20/23 History Losartan [Cozaar] 25 mg PO DAILY #90 tab 11/08/22 09/20/23 Rx carvediloL [Coreg] 3.125 mg PO BID 09/20/23 09/20/23 History
== END ==
LOC: 3 N SLEEP 15:52
PROVIDERS: ATTEND Internal Medicine
DX: G47.33 Obstructive sleep apnea (adult) (pediatric) (principal); E03.9 Hypothyroidism, unspecified; I48.92 Unspecified atrial flutter; F41.9 Anxiety disorder, unspecified; Z98.890 Other specified postprocedural states; Z99.89 Dependence on other enabling machines and devices; Z79.01 Long term (current) use of anticoagulants; Z79.890 Hormone replacement therapy
CPT/HCPCS: 99212

== ENCOUNTER → 2023-11-10 | Outpatient (CLI) | payer BC ==
[2023-11-10 14:52] LABS: HCT 43.6 % (39.6-50.0); MCH 30.8 pg (27.0-32.0); MCHC 32.1 g/dL (32.0-37.0); Mean Platelet Volume 9.8 FL (9.5-12.2); NRBC Per 100 WBC 0 X 10*3/uL (0.00-0.01); Platelet Count 234 X 10*3/uL (140-440); RBC 4.54 X 10*6/uL (4.40-5.60); RDW 13.6 % (11.5-14.5); WBC 6.97 X 10*3/uL (4.50-10.00)
[2023-11-10 17:41] LABS: Chol/HDL Ratio 1.81 Ratio; LDL Cholesterol,Calculated 48.7 mg/dL (0.0-131.0); Prostate Specific Antigen 0.26 ng/mL (0.000-4.500); T4, Free (Free Thyroxine) 1.21 ng/dL (0.80-1.80)
== END | disposition home or self-care (01) ==
LOC: LABWHC1 09:14
PROVIDERS: ATTEND Family Medicine
DX: Z00.00 Encounter for general adult medical examination without abnormal findings (principal); I48.91 Unspecified atrial fibrillation; I25.10 Atherosclerotic heart disease of native coronary artery without angina pectoris
CPT/HCPCS: 36415; 80061; 83036; 84153; 84439; 84443; 85027

== ENCOUNTER → 2024-05-16 | Outpatient (CLI) | payer BC ==
[2024-05-16 17:04] VITALS: BP 138/73; PULSE 65; RESP 18; TEMP 98.6
--- NOTE | 2024-05-16 17:56 | P.PROGSL ---
Subjective DATE: 05/16/2024 FOLLOW UP VISIT. Patient with obstructive sleep apnea hypopnea syndrome return to sleep center for follow-up visit. Information from previous visit have been reviewed. Patient is using PAP equipment every night for the whole night, getting PAP supplies in time. The patient does not have significant problems with the mask, PAP unit and humidification. [place] sleepiness scale is 3, which is normal. I checked information from PAP unit. PAP unit pressure 7-15, average 14.8 cm H2O. Usage is 98% for more then 4 hours, average 6.5 hours per night. Leak is 20 l/m, which is in acceptable range. Apnea Hypopnea Index is 3.4, which is normal. MEDICATIONS have been reviewed, please see below. During physical exam: GENERAL: A pleasant patient without any distress. VITAL SIGNS: Please see below, weight is 229 lbs. HEENT: PERRLA, EOMI.low position of soft palate, Mallapati 3. NECK: Supple. No JVD. LUNGS: Clear to percussion and to auscultation. Good air exchange. No wheezing or rhonchi. HEART: S1, S2 regular. ABDOMEN: Soft and nontender.[] EXTREMITIES: No clubbing or cyanosis. LATENT PRINT EXAMINER: Awake, alert, and oriented x3. No focal deficit. Impressions: 1. Obstructive sleep apnea-hypopnea syndrome. Patient demonstrated great compliance with treatment, benefiting from treatment. 2. History of atrial flutter, no recent episodes of cardiac arrhythmia. 3. Hypothyroidism. 4. History of anxiety. 5. Status post bilateral knee surgery. 6. Status post bilateral foot surgery. Plan: 1. Continue using PAP equipment every night for the whole night. 2. Sleep hygiene with regular time in bed for at least 7.5-8 hours 3. PAP unit should stay lower then position of the head. 4. Advised patient to remove all remaining water from humidifier canister daily and make it dry after each usage. Refill canister with fresh distilled water before each usage. 5. Watching weight. 6. Precautions related to driving. No driving if feel any sleepiness. 7. I will maintain prescription for PAP supplies including mask, tube, filters. 8. Follow up visit in 6 months or earlier if patient has any problems. Thank you very much for allowing me to participate in the management of your patient. Jonathan Swan MD, PhD, FAASM. Diplomat of [employer], Sleep Medicine Board by [employer] [facility] [place] [facility] [place] Objective - Vital Signs Vital Signs: Vital Signs Temp 98.6 F 05/16/24 17:03 Pulse 65 05/16/24 17:03 Resp 18 05/16/24 17:03 BP 138/73 05/16/24 17:03 Pulse Ox 95 05/16/24 17:03 FiO2 Intake & Output 05/15/24 05/16/24 05/16/24 18:59 06:59 18:59 Weight 103.873 kg Home Medications: Home Medications Medication Instructions Recorded Confirmed Type Levothyroxine Sodium [Synthroid] 50 mcg PO DAILY 05/27/21 05/16/24 History Vit C/E/Zn/Coppr/Lutein/Zeaxan 1 each PO DAILY 05/27/21 11/07/22 History [Preservision Areds 2 Softgel] Apixaban [Eliquis] 5 mg PO BID 11/03/22 05/16/24 History Escitalopram [Lexapro] 5 mg PO DAILY 11/03/22 05/16/24 History Metoprolol Tartrate [Lopressor] 25 mg PO QID 11/03/22 11/07/22 History Rosuvastatin Calcium 20 mg PO HS 11/03/22 05/16/24 History Losartan [Cozaar] 25 mg PO DAILY #90 tab 11/08/22 09/20/23 Rx carvediloL [Coreg] 3.125 mg PO BID 09/20/23 05/16/24 History Losartan Potassium 25 mg PO DAILY 05/16/24 05/16/24 History
== END ==
LOC: 3 N SLEEP 16:32
PROVIDERS: ATTEND Internal Medicine
DX: G47.33 Obstructive sleep apnea (adult) (pediatric) (principal); E03.9 Hypothyroidism, unspecified; Z86.79 Personal history of other diseases of the circulatory system; Z86.59 Personal history of other mental and behavioral disorders; Z98.890 Other specified postprocedural states
CPT/HCPCS: 99212

== ENCOUNTER 2024-06-01 13:36 | Observation (INO) | payer BC ==
[2024-06-01] MEDS: SODIUM CHLORIDE 0.9% 1,000 ML IV STA (14:17)
[2024-06-01] MEDS: ASPIRIN 81 MG PO STA (14:17)
[2024-06-01 14:25] LABS: Partial Thromboplastin Time 25.1 sec (22.0-30.0); Prothrombin Time 10.7 sec (10.0-12.5)
[2024-06-01 14:31] LABS: ALT 57 U/L (4-49); AST 33 U/L (17-59); African American GFR (CKD) >90 (>60 ml/min/1.73 sqM); Albumin 4.3 g/dL (3.5-5.0); Alkaline Phosphatase 89 U/L (38-126); Anion Gap 7 mmol/L; Basophils # (A) 0.1 k/uL (0-0.2); Basophils % (A) 1 %; Blood Urea Nitrogen 18 mg/dL (9-20); Calcium 9.5 mg/dL (8.4-10.2); Carbon Dioxide 26 mmol/L (22-30); Chloride 107 mmol/L (98-107); Eosinophils # (A) 0.1 k/uL (0-0.7); Eosinophils % (A) 1 %; Glucose 95 mg/dL (74-99); HCT 48.8 % (39.0-53.0); HGB 16.3 gm/dL (13.0-17.5); Lymphocytes # (A) 1.3 k/uL (1.0-4.8); Lymphocytes % (A) 14 %; MCH 31.3 pg (25.0-35.0); MCHC 33.3 g/dL (31.0-37.0); Magnesium 2.1 mg/dL (1.6-2.3); Mean Platelet Volume 7.4; Monocytes # (A) 0.6 k/uL (0-1.0); Monocytes % (A) 7 %; Neutrophils # (A) 7.5 k/uL (1.3-7.7); Neutrophils % (A) 77 %; Non-African American GFR(CKD) >90 (>60 ml/min/1.73 sqM); Platelet Count 289 k/uL (150-450); Potassium 4.3 mmol/L (3.5-5.1); RBC 5.19 m/uL (4.30-5.90); Sodium 140 mmol/L (137-145); Total Bilirubin 0.7 mg/dL (0.2-1.3); Total Protein 6.9 g/dL (6.3-8.2); WBC 9.7 k/uL (3.8-10.6)
--- NOTE | 2024-06-01 14:35 | ED ---
General Adult HPI - General Chief complaint: Arrhythmia/Palpitations Stated complaint: heart issue Time Seen by Provider: 06/01/24 13:50 Source: patient, RN notes reviewed, old records reviewed Mode of arrival: ambulatory Limitations: no limitations - History of Present Illness Initial comments: Patient is a 63-year-old male who presents emergency department complaining of chest discomfort and palpitations. Has a history of A-fib status post ablation typically not in atrial fibrillation. States that he felt himself going to A- fib last night and he has been at in it since. States he gets intermittent discomfort in his chest with it. No significant shortness of breath, headaches. Difficult describing the chest discomfort he has but states it is not just a rudi pain. He just knows he is in A-fib and feels uncomfortable. Denies n ausea or vomiting. Denies diarrhea. No known sick contacts. Recent upper respiratory infection but completed course of steroids as well as antibiotics. Was instructed by his adjunct philosophy faculty to take metoprolol and flecainide if this ever happens which he did however did not improve his symptoms and he is still in A-fib which is why presents for further evaluation at this time. He is on blood thinners. Has been compliant with all medications. - Related Data Home Medications Medication Instructions Recorded Confirmed Levothyroxine Sodium [Synthroid] 50 mcg PO DAILY 05/27/21 06/01/24 Apixaban [Eliquis] 5 mg PO BID 11/03/22 06/01/24 Escitalopram [Lexapro] 10 mg PO DAILY 11/03/22 06/01/24 carvediloL [Coreg] 3.125 mg PO BID 09/20/23 06/01/24 Rosuvastatin [Crestor] 20 mg PO HS 06/01/24 06/01/24 tadalafiL 20 mg PO DAILY PRN 06/01/24 06/01/24 Previous Rx's Medication Instructions Recorded Losartan [Cozaar] 25 mg PO DAILY #90 tab 11/08/22 Allergies Allergy/AdvReac Type Severity Reaction Status Date / Time methylprednisolone AdvReac high heart Verified 06/01/24 15:32 [From Medrol] rate/fluttering/a-fib prednisone AdvReac high heart Verified 06/01/24 15:32 rate/fluttering/a-fib Review of Systems ROS Statement: Those systems with pertinent positive or pertinent negative responses have been documented in the HPI. Review of Systems: CONST: Denies fever EYES: Denies blurry vision ENT: Denies nasal congestion C/V: Endorses intermittent chest discomfort RESP: Denies shortness of breath GI: Denies abdominal pain : Denies dysuria SKIN: Denies rash. MSK: Denies joint pain. NEURO: Denies headache ROS Other: All systems not noted in ROS Statement are negative. Past Medical History Past Medical History: Atrial Fibrillation, Eye Disorder, Sleep Apnea/CPAP/BIPAP, Thyroid Disorder Additional Past Medical History / Comment(s): A-Fib past 6 months. Sl macular degeneration. Uses CPAP. History of Any Multi-Drug Resistant Organisms: None Reported Past Surgical History: Orthopedic Surgery Additional Past Surgical History / Comment(s): Bilat foot surg, bilat knees as child. Colonoscopy Past Anesthesia/Blood Transfusion Reactions: No Reported Reaction Past Psychological History: Anxiety Smoking Status: Never smoker Past Alcohol Use History: Daily Past Drug Use History: None Reported - Past Family History Father Family Medical History: Cancer Additional Family Medical History / Comment(s): Colon cancer. General Exam - General Exam Comments Initial Comments: General: Appears in no acute distress. HEAD: Normal with no signs of head trauma. EYES: PERRLA, EOMI, conjunctiva normal, no discharge. ENT: Hearing grossly intact, normal oropharynx. RESPIRATORY: Clear breath sounds bilaterally. No wheezes, rales, or rhonchi. C/V: Irregular rate and rhythm. S1 and S2 auscultated, no edema, peripheral pulses 2+ and intact throughout ABD: Abd is soft, nontender, nondistended EXT: Normal range of motion, no obvious deformity SKIN: No rashes or lesions observed on exposed skin. NEURO: Alert and oriented x 4. Limitations: no limitations Course Vital Signs 06/01/24 06/01/24 06/01/24 13:36 14:29 15:43 Temperature 98.0 F Pulse Rate 85 80 Pulse Rate [ 86 Data Processing Specialist ] Respiratory 16 16 Rate Blood Pressure 97/65 118/68 O2 Sat by Pulse 99 97 Oximetry Medical Decision Making - Medical Decision Making Was pt. sent in by a medical professional or institution (, PA, SURGERY SPECIALIST, urgent care, hospital, or usp...) When possible be specific @ -No Did you speak to anyone other than the patient for history (EMS, parent, family, police, friend...)? What history was obtained from this source @ -No Did you review nursing and triage notes (agree or disagree)? Why? @ -I reviewed and agree with nursing and triage notes Were old charts reviewed (outside hosp., previous admission, EMS record, old EKG, old radiological studies, urgent care reports/EKG's, usp records)? Report findings @ -Charts reviewed confirming patient is on Eliquis as well as antiarrhythmic medications. Differential Diagnosis (chest pain, altered mental status, abdominal pain women, abdominal pain men, vaginal bleeding, weakness, fever, dyspnea, syncope, headache, dizziness, GI bleed, back pain, seizure, CVA, palpatations, mental health, musculoskeletal)? @ -Differential Palpitations Ventricular arrhythmias, atrial arrhythmias, myocardial infarction, anemia, thyrotoxicosis, electrolyte imbalance, hypokalemia, pulmonary embolism, pulmonary disease, drugs, alcohol, anxiety, stress.... This is not meant to be an all-inclusive list. EKG interpreted by me (3pts min.). @ -As above X-rays interpreted by me (1pt min.). @ -X-ray reveals no obvious acute cardiopulmonary process. CT interpreted by me (1pt min.). @ -None done U/S interpreted by me (1pt. min.). @ -None done What testing was considered but not performed or refused? (CT, X-rays, U/S, labs)? Why? @ -None What meds were considered but not given or refused? Why? @ -None Did you discuss the management of the patient with other professionals (professionals i.e. , PA, SURGERY SPECIALIST, lab, RT, psych nurse, social sciences chair, muffler mechanic, teacher, articulation officer, case folder)? Give summary @ - Cardiology consulted. Spoke with admitting provider, Dr. Singh who accepted the admission. Was smoking cessation discussed for >3mins.? @ -No Was critical care preformed (if so, how long)? @ -No Were there social determinants of health that impacted care today? How? (Homelessness, low income, unemployed, alcoholism, drug addiction, transportation, low edu. Level, literacy, decrease access to med. care, retirement, rehab)? @ -No Was there de-escalation of care discussed even if they declined (Discuss DNR or withdrawal of care, Hospice)? DNR status @ -No What co-morbidities impacted this encounter? (DM, HTN, Smoking, COPD, CAD, Cancer, CVA, ARF, Chemo, Hep., AIDS, mental health diagnosis, sleep apnea, morbid obesity)? @ -Atrial fibrillation Was patient admitted / discharged? Hospital course, mention meds given and route, prescriptions, significant lab abnormalities, going to OR and other pertinent info. @ -Patient's presentation and physical exam, presents emergency department complaining of chest discomfort and believes he is back in his A-fib. Denies any rudi chest pain, shortness of breath. States he took his normal medications he was supposed to take but that did not improve his symptoms. Presents for further evaluation. Typically is not in atrial fibrillation but normal sinus rhythm. Follows up with Dr. Smith in the office. We will obtain cardiac workup. Vital signs currently remarkable for rate controlled A- fib. He has no other complaints and states he does not have the chest discomfort at this time. Presents for further evaluation at this time. If EKG shows rate controlled A-fib. Chest x-ray reveals no obvious acute cardiopulmonary process. EKG shows atrial fibrillation, currently rate controlled. Labs remarkable for undetectable troponin. Elevation in BNP likely secondary to A-fib. Viral swabs negative. On reevaluation, patient remains comfortable. Due to him having the intermittent chest discomfort over the last day or so while he was in A-fib, decision made to admit for symptomatic atrial fibrillation and cardiology evaluation. Patient was in agreement this plan. Cardiology consulted. Spoke with admitting provider, Dr. Singh who accepted the admission. Undiagnosed new problem with uncertain prognosis? @ -No Drug Therapy requiring intensive monitoring for toxicity (Heparin, Nitro, Insulin, Cardizem)? @ -No Were any procedures done? @ -No Diagnosis/symptom? @ -Symptomatic atrial fibrillation Acute, or Chronic, or Acute on Chronic? @ -Acute Uncomplicated (without systemic symptoms) or Complicated (systemic symptoms)? @ -Complicated Side effects of treatment? @ -None Exacerbation, Progression, or Severe Exacerbation] @ -No Poses a threat to life or bodily function? @ -Potentially yes - Lab Data Result diagrams: 06/01/24 14:04 06/01/24 14:04 Lab Results 02/06/01/24 06/01/24 Range/Units 14:04 14:04 14:04 WBC 9.7 (3.8-10.6) k/uL RBC 5.19 (4.30-5.90) m/uL Hgb 16.3 (13.0-17.5) gm/dL Hct 48.8 (39.0-53.0) % MCV 94.0 (80.0-100.0) fL MCH 31.3 (25.0-35.0) pg MCHC 33.3 (31.0-37.0) g/dL RDW 13.0 (11.5-15.5) % Plt Count 289 (150-450) k/uL MPV 7.4 Neutrophils % 77 % Lymphocytes % 14 % Monocytes % 7 % Eosinophils % 1 % Basophils % 1 % Neutrophils # 7.5 (1.3-7.7) k/uL Lymphocytes # 1.3 (1.0-4.8) k/uL Monocytes # 0.6 (0-1.0) k/uL Eosinophils # 0.1 (0-0.7) k/uL Basophils # 0.1 (0-0.2) k/uL PT 10.7 (10.0-12.5) sec INR 1.0 (<1.2) APTT 25.1 (22.0-30.0) sec Sodium 140 (137-145) mmol/L Potassium 4.3 (3.5-5.1) mmol/L Chloride 107 (98-107) mmol/L Carbon Dioxide 26 (22-30) mmol/L Anion Gap 7 mmol/L BUN 18 (9-20) mg/dL Creatinine 0.80 (0.66-1.25) mg/dL Est GFR (CKD-EPI)AfAm >90 (>60 ml/min/1.73 sqM) Est GFR (CKD-EPI)NonAf >90 (>60 ml/min/1.73 sqM) Glucose 95 (74-99) mg/dL Calcium 9.5 (8.4-10.2) mg/dL Magnesium 2.1 (1.6-2.3) mg/dL Total Bilirubin 0.7 (0.2-1.3) mg/dL AST 33 (17-59) U/L ALT 57 H (4-49) U/L Alkaline Phosphatase 89 (38-126) U/L Troponin I (0.000-0.034) ng/mL NT-Pro-B Natriuret Pep 2460 pg/mL Total Protein 6.9 (6.3-8.2) g/dL Albumin 4.3 (3.5-5.0) g/dL Influenza Type A (PCR) (Not Detectd) Influenza Type B (PCR) (Not Detectd) RSV (PCR) (Not Detectd) SARS-CoV-2 (PCR) (Not Detectd) 06/01/24 06/01/24 06/01/24 Range/Units 14:04 14:04 17:05 WBC (3.8-10.6) k/uL RBC (4.30-5.90) m/uL Hgb (13.0-17.5) gm/dL Hct (39.0-53.0) % MCV (80.0-100.0) fL MCH (25.0-35.0) pg MCHC (31.0-37.0) g/dL RDW (11.5-15.5) % Plt Count (150-450) k/uL MPV Neutrophils % % Lymphocytes % % Monocytes % % Eosinophils % % Basophils % % Neutrophils # (1.3-7.7) k/uL Lymphocytes # (1.0-4.8) k/uL Monocytes # (0-1.0) k/uL Eosinophils # (0-0.7) k/uL Basophils # (0-0.2) k/uL PT (10.0-12.5) sec INR (<1.2) APTT (22.0-30.0) sec Sodium (137-145) mmol/L Potassium (3.5-5.1) mmol/L Chloride (98-107) mmol/L Carbon Dioxide (22-30) mmol/L Anion Gap mmol/L BUN (9-20) mg/dL Creatinine (0.66-1.25) mg/dL Est GFR (CKD-EPI)AfAm (>60 ml/min/1.73 sqM) Est GFR (CKD-EPI)NonAf (>60 ml/min/1.73 sqM) Glucose (74-99) mg/dL Calcium (8.4-10.2) mg/dL Magnesium (1.6-2.3) mg/dL Total Bilirubin (0.2-1.3) mg/dL AST (17-59) U/L ALT (4-49) U/L Alkaline Phosphatase (38-126) U/L Troponin I <0.012 <0.012 (0.000-0.034) ng/mL NT-Pro-B Natriuret Pep pg/mL Total Protein (6.3-8.2) g/dL Albumin (3.5-5.0) g/dL Influenza Type A (PCR) Not Detected (Not Detectd) Influenza Type B (PCR) Not Detected (Not Detectd) RSV (PCR) Not Detected (Not Detectd) SARS-CoV-2 (PCR) Not Detected (Not Detectd) 06/01/24 Range/Units 19:32 WBC (3.8-10.6) k/uL RBC (4.30-5.90) m/uL Hgb (13.0-17.5) gm/dL Hct (39.0-53.0) % MCV (80.0-100.0) fL MCH (25.0-35.0) pg MCHC (31.0-37.0) g/dL RDW (11.5-15.5) % Plt Count (150-450) k/uL MPV Neutrophils % % Lymphocytes % % Monocytes % % Eosinophils % % Basophils % % Neutrophils # (1.3-7.7) k/uL Lymphocytes # (1.0-4.8) k/uL Monocytes # (0-1.0) k/uL Eosinophils # (0-0.7) k/uL Basophils # (0-0.2) k/uL PT (10.0-12.5) sec INR (<1.2) APTT (22.0-30.0) sec Sodium (137-145) mmol/L Potassium (3.5-5.1) mmol/L Chloride (98-107) mmol/L Carbon Dioxide (22-30) mmol/L Anion Gap mmol/L BUN (9-20) mg/dL Creatinine (0.66-1.25) mg/dL Est GFR (CKD-EPI)AfAm (>60 ml/min/1.73 sqM) Est GFR (CKD-EPI)NonAf (>60 ml/min/1.73 sqM) Glucose (74-99) mg/dL Calcium (8.4-10.2) mg/dL Magnesium (1.6-2.3) mg/dL Total Bilirubin (0.2-1.3) mg/dL AST (17-59) U/L ALT (4-49) U/L Alkaline Phosphatase (38-126) U/L Troponin I <0.012 (0.000-0.034) ng/mL NT-Pro-B Natriuret Pep pg/mL Total Protein (6.3-8.2) g/dL Albumin (3.5-5.0) g/dL Influenza Type A (PCR) (Not Detectd) Influenza Type B (PCR) (Not Detectd) RSV (PCR) (Not Detectd) SARS-CoV-2 (PCR) (Not Detectd) - EKG Data -: EKG Interpreted by Me EKG Comments: 12-lead Electrocardiogram Interpretation Note EKG was reviewed and interpreted by myself. 12-lead ECG performed at 1350 is interpreted by me as revealing A-fib at a rate of 86 beats per minute. [place] is normal.. There were no ST or T wave abnormalities to suggest myocardial isch emia or injury. R wave progression across the precordium was delayed. By my interpretation this EKG is non-diagnostic for acute ischemia. Disposition Clinical Impression: Atrial fibrillation Disposition: ADMITTED IP TO THIS HOSP Condition: Stable Referrals: Mickey Harvey DO [Primary Care Provider] - 1-2 days Time of Disposition: 15:36
[2024-06-01 14:38] LABS: NT-Pro-B-Type Natriuretic Pept 2460 pg/mL
[2024-06-01 14:48] LABS: Influenza A Not Detected (Not Detectd); Influenza B Not Detected (Not Detectd); RSV Not Detected (Not Detectd)
--- NOTE | 2024-06-01 14:56 | XR ---
EXAMINATION TYPE: XR chest 2V DATE OF EXAM: 06/01/2024 2:52 PM COMPARISON: None CLINICAL INDICATION: Male, 63 years old with history of Chest Pain; TECHNIQUE: XR chest 2V Frontal and lateral views of the chest. FINDINGS: Lungs/Pleura: There is no evidence of pleural effusion, focal consolidation, or pneumothorax. Pulmonary vascularity: Unremarkable. Heart/mediastinum: Cardiomediastinal silhouette is unremarkable. Musculoskeletal: No acute osseous pathology. IMPRESSION: No acute cardiopulmonary disease/process. [facility], , 06/01/2024 2:54 PM
[2024-06-01] MEDS ORDERED: NALOXONE 0.4 MG/ML 1 ML VIAL IV PRN (15:36)
[2024-06-01] MEDS ORDERED: ACETAMINOPHEN TAB 325 MG TAB PO PRN (15:36)
[2024-06-01] MEDS ORDERED: NON FORMULARY DRUG (Tadalafil [Tadalafil] 20 MG Tablet) PO PRN (15:38)
--- NOTE | 2024-06-01 16:36 | P.HPIM ---
History of Present Illness 63-year-old male came in with complaints of chest discomfort and palpitations. Patient had an ablation about 1 and half year ago after that his atrial fibrillation medications were discontinued and was given flecainide to take on an as-needed basis for symptoms of atrial fibrillation patient did take that medication without any significant help because of which patient came to the hospital patient is in atrial fibrillation/flutter but rate controlled. Patient although feels tired because of symptomatic atrial fibrillation patient is being admitted for monitoring and evaluation by cardiology. Patient was recently treated for upper respiratory infection with steroids and antibiotics. REVIEW OF SYSTEMS: All other systems are negative except those mentioned in the HPI PHYSICAL EXAMINATION: GENERAL: The patient is alert and oriented x3, not in any acute distress. Well developed, well nourished. HEENT: Pupils are round and equally reacting to light. EOMI. No scleral icterus. No conjunctival pallor. Normocephalic, atraumatic. No pharyngeal erythema. No thyromegaly. CARDIOVASCULAR: S1 and S2 present. No murmurs, rubs, or gallops. PULMONARY: Chest is clear to auscultation, no wheezing or crackles. ABDOMEN: Soft, nontender, nondistended, normoactive bowel sounds. No palpable organomegaly. MUSCULOSKELETAL: No joint swelling or deformity. EXTREMITIES: No cyanosis, clubbing, or pedal edema. NEUROLOGICAL: Gross neurological examination did not reveal any focal deficits. SKIN: No rashes. Assessment and plan -Atrial fibrillation/flutter patient is rate controlled continue with anticoagulation monitor overnight cardiology consultation -Hypothyroidism -Sleep apnea -Depression -Hyperlipidemia For above-mentioned chronic medical problems patient will be resumed on appropriate home medications DVT prophylaxis: On Eliquis Past Medical History Past Medical History: Atrial Fibrillation, Eye Disorder, Sleep Apnea/CPAP/BIPAP, Thyroid Disorder Additional Past Medical History / Comment(s): A-Fib past 6 months. Sl macular degeneration. Uses CPAP. History of Any Multi-Drug Resistant Organisms: None Reported Past Surgical History: Orthopedic Surgery Additional Past Surgical History / Comment(s): Bilat foot surg, bilat knees as child. Colonoscopy Past Anesthesia/Blood Transfusion Reactions: No Reported Reaction Past Psychological History: Anxiety Smoking Status: Never smoker Past Alcohol Use History: Daily Past Drug Use History: None Reported - Past Family History Father Family Medical History: Cancer Additional Family Medical History / Comment(s): Colon cancer. Medications and Allergies Home Medications Medication Instructions Recorded Confirmed Type Levothyroxine Sodium [Synthroid] 50 mcg PO DAILY 05/27/21 06/01/24 History Apixaban [Eliquis] 5 mg PO BID 11/03/22 06/01/24 History Escitalopram [Lexapro] 10 mg PO DAILY 11/03/22 06/01/24 History Losartan [Cozaar] 25 mg PO DAILY #90 tab 11/08/22 06/01/24 Rx carvediloL [Coreg] 3.125 mg PO BID 09/20/23 06/01/24 History Rosuvastatin [Crestor] 20 mg PO HS 06/01/24 06/01/24 History tadalafiL 20 mg PO DAILY PRN 06/01/24 06/01/24 History Allergies Allergy/AdvReac Type Severity Reaction Status Date / Time methylprednisolone AdvReac high heart Verified 06/01/24 15:32 [From Medrol] rate/fluttering/a-fib prednisone AdvReac high heart Verified 06/01/24 15:32 rate/fluttering/a-fib Physical Exam Vitals: Vital Signs Temp Pulse Pulse Resp BP Pulse Ox 06/01/24 15:43 80 16 118/68 97 06/01/24 14:29 86 06/01/24 13:36 98.0 F 85 16 97/65 99 Intake and Output 06/01/24 06/01/24 06/01/24 06:59 14:59 22:59 Other: Weight 99.79 kg Results CBC & Chem 7: 06/01/24 14:04 06/01/24 14:04 Labs: Abnormal Lab Results - Last 24 Hours (Table) 06/01/24 Range/Units 14:04 ALT 57 H (4-49) U/L
[2024-06-01] MEDS: SODIUM CHLORIDE 0.9% 1,000 ML IV SCH (16:47)
[2024-06-01] MEDS: ATORVASTATIN 40 MG TAB PO SCH (23:50)
[2024-06-01] MEDS: APIXABAN 5 MG TAB PO SCH (23:50)
[2024-06-01] MEDS: carvediloL 3.125 MG TAB PO SCH (23:50)
[2024-06-02 06:34] LABS: Basophils # (A) 0.1 k/uL (0-0.2); Basophils % (A) 1 %; Eosinophils # (A) 0.1 k/uL (0-0.7); Eosinophils % (A) 1 %; HCT 46.3 % (39.0-53.0); HGB 14.8 gm/dL (13.0-17.5); Lymphocytes # (A) 1.8 k/uL (1.0-4.8); Lymphocytes % (A) 22 %; MCH 30.1 pg (25.0-35.0); MCV 94.1 fL (80.0-100.0); Mean Platelet Volume 7.4; Monocytes # (A) 0.5 k/uL (0-1.0); Monocytes % (A) 6 %; Neutrophils # (A) 5.6 k/uL (1.3-7.7); Neutrophils % (A) 69 %; Platelet Count 238 k/uL (150-450); RBC 4.92 m/uL (4.30-5.90); RDW 13.4 % (11.5-15.5); WBC 8.1 k/uL (3.8-10.6)
[2024-06-02 06:50] LABS: ALT 43 U/L (4-49); AST 25 U/L (17-59); African American GFR (CKD) >90 (>60 ml/min/1.73 sqM); Albumin 3.5 g/dL (3.5-5.0); Alkaline Phosphatase 51 U/L (38-126); Anion Gap 3 mmol/L; Blood Urea Nitrogen 14 mg/dL (9-20); Carbon Dioxide 31 mmol/L (22-30); Chloride 105 mmol/L (98-107); Glucose 94 mg/dL (74-99); Non-African American GFR(CKD) >90 (>60 ml/min/1.73 sqM); Potassium 4.9 mmol/L (3.5-5.1); Sodium 139 mmol/L (137-145); Total Bilirubin 0.8 mg/dL (0.2-1.3); Total Protein 5.6 g/dL (6.3-8.2)
[2024-06-02] MEDS: LEVOTHYROXINE 50 MCG TAB PO SCH (09:06)
[2024-06-02] MEDS: ESCITALOPRAM 10 MG TAB PO SCH (09:06)
[2024-06-02] MEDS: LOSARTAN 25 MG TAB PO SCH (09:06)
--- NOTE | 2024-06-02 11:34 | P.CRDCN ---
History of Present Illness Consult date: 06/02/24 History of present illness: HISTORY OF PRESENTING ILLNESS: Patient is a 63-year-old male with past medical history of paroxysmal atrial fibrillation and atrial flutter. In 2022 he had ablation for atrial flutter however paroxysmal atrial fibrillation ablation was not performed. He is known to Dr. Rosado. He presents to the [facility] because of palpitation s ymptoms and he noticed that he was having A-fib. He has been using flecainide and metoprolol as a pill in the pocket strategy however with 50 mg of flecainide and 50 mg of metoprolol his atrial fibrillation could not get controlled therefore he presented to the hospital.: Admission Labs: Troponins were not elevated and labs were essentially within normal limits. Admission EKG: Atrial fibrillation QRS 190 ms, no significant ST-T wave changes concerning for ischemia Imaging: Chest x-ray does not show any signs of pulmonary congestion or consolidation REVIEW OF SYSTEMS: 14 point review of system is negative except what is mentioned above in HPI. PHYSICAL EXAMINATION: Neck: Brisk carotid upstroke, no jugular venous distention. Lungs: Clear to auscultation. Heart: Irregularly irregular, S1-S2, , no murmur or rub. Abdomen: Soft nontender, positive bowel sounds. Extremities: No edema, intact distal pulses. Neuro: Alert, oritented, no focal deficits. Detailed neuro exam was not performed. ASSESSMENT: # Atrial fibrillation, rate controlled, symptomatic with palpitations # Prior history of atrial flutter status post ablation # Essential hypertension # Obesity # Sleep apnea on CPAP # Occasional alcohol use no smoking PLAN: Give 1 dose of flecainide 150 mg and metoprolol 50 mg and see if patient converts out of atrial fibrillation or not. Give 1 dose of magnesium sulfate 1 g as well. If converts out of A-fib, patient is okay to be discharged home. Recommend outpatient follow-up with Dr. Rosado to reevaluate pill in the pocket strategy. Abstain from alcohol He is on losartan and Coreg and Eliquis, levothyroxine at home. I will continue these medication without any changes to the dosing. Dwain Ramon MD, FACC, RPVI Thank you for allowing [facility] to participate in this patient's care. Feel free to reach out in case of any followup questions. Past Medical History Past Medical History: Atrial Fibrillation, Eye Disorder, Sleep Apnea/CPAP/BIPAP, Thyroid Disorder Additional Past Medical History / Comment(s): A-Fib past 6 months. Sl macular degeneration. Uses CPAP. History of Any Multi-Drug Resistant Organisms: None Reported Past Surgical History: Orthopedic Surgery Additional Past Surgical History / Comment(s): Bilat foot surg, bilat knees as child. Colonoscopy Past Anesthesia/Blood Transfusion Reactions: No Reported Reaction Past Psychological History: Anxiety Smoking Status: Never smoker Past Alcohol Use History: Daily Additional Past Alcohol Use History / Comment(s): 1 drink daily Past Drug Use History: None Reported - Past Family History Father Family Medical History: Cancer Additional Family Medical History / Comment(s): Colon cancer. Medications and Allergies Home Medications Medication Instructions Recorded Confirmed Type Levothyroxine Sodium [Synthroid] 50 mcg PO DAILY 05/27/21 06/01/24 History Apixaban [Eliquis] 5 mg PO BID 11/03/22 06/01/24 History Escitalopram [Lexapro] 10 mg PO DAILY 11/03/22 06/01/24 History Losartan [Cozaar] 25 mg PO DAILY #90 tab 11/08/22 06/01/24 Rx carvediloL [Coreg] 3.125 mg PO BID 09/20/23 06/01/24 History Rosuvastatin [Crestor] 20 mg PO HS 06/01/24 06/01/24 History tadalafiL 20 mg PO DAILY PRN 06/01/24 06/01/24 History Allergies Allergy/AdvReac Type Severity Reaction Status Date / Time methylprednisolone AdvReac high heart Verified 06/01/24 15:32 [From Medrol] rate/fluttering/a-fib prednisone AdvReac high heart Verified 06/01/24 15:32 rate/fluttering/a-fib Physical Exam Vitals: Vital Signs Temp Pulse Pulse Pulse Resp BP BP 06/02/24 07:00 97.7 F 91 16 125/69 06/02/24 00:30 88 06/02/24 00:17 98.1 F 88 18 131/75 06/01/24 23:44 93 18 115/76 06/01/24 15:43 80 16 118/68 06/01/24 14:29 86 06/01/24 13:36 98.0 F 85 16 97/65 Pulse Ox 02/16/25 07:00 98 06/02/24 00:30 06/02/24 00:17 97 06/01/24 23:44 99 06/01/24 15:43 97 06/01/24 14:29 06/01/24 13:36 99 Intake and Output 06/01/24 06/02/24 06/02/24 22:59 06:59 14:59 Intake Total 476 Balance 476 Intake: Oral 476 Other: # Voids 3 Weight 99.79 kg Results 06/02/24 05:22 06/02/24 05:22 Cardiac Enzymes 06/01/24 06/01/24 06/01/24 Range/Units 14:04 14:04 17:05 AST 33 (17-59) U/L Troponin I <0.012 <0.012 (0.000-0.034) ng/mL 06/01/24 06/02/24 Range/Units 19:32 05:22 AST 25 (17-59) U/L Troponin I <0.012 (0.000-0.034) ng/mL Coagulation 06/01/24 Range/Units 14:04 PT 10.7 (10.0-12.5) sec APTT 25.1 (22.0-30.0) sec CBC 06/01/24 06/02/24 Range/Units 14:04 05:22 WBC 9.7 8.1 (3.8-10.6) k/uL RBC 5.19 4.92 (4.30-5.90) m/uL Hgb 16.3 14.8 (13.0-17.5) gm/dL Hct 48.8 46.3 (39.0-53.0) % Plt Count 289 238 (150-450) k/uL Comprehensive Metabolic Panel 06/01/24 06/02/24 Range/Units 14:04 05:22 Sodium 140 139 (137-145) mmol/L Potassium 4.3 4.9 (3.5-5.1) mmol/L Chloride 107 105 (98-107) mmol/L Carbon Dioxide 26 31 H (22-30) mmol/L BUN 18 14 (9-20) mg/dL Creatinine 0.80 0.80 (0.66-1.25) mg/dL Glucose 95 94 (74-99) mg/dL Calcium 9.5 9.0 (8.4-10.2) mg/dL AST 33 25 (17-59) U/L ALT 57 H 43 (4-49) U/L Alkaline Phosphatase 89 51 (38-126) U/L Total Protein 6.9 5.6 L (6.3-8.2) g/dL Albumin 4.3 3.5 (3.5-5.0) g/dL Current Medications Generic Name Dose Route Start Last Admin Trade Name Freq PRN Reason Stop Dose Admin Acetaminophen 650 mg 06/01/24 15:36 Acetaminophen Tab 325 Mg Tab PO Q6HR PRN Mild Pain or Fever > 100.5 Apixaban 5 mg 06/01/24 21:00 06/02/24 09:06 Apixaban 5 Mg Tab PO 5 mg BID RANDOLPH Administration Protocol Atorvastatin Calcium 40 mg 06/01/24 21:00 06/01/24 23:50 Atorvastatin 40 Mg Tab PO Not Given HS RANDOLPH Escitalopram Oxalate 10 mg 06/02/24 09:00 06/02/24 09:06 Escitalopram 10 Mg Tab PO 10 mg DAILY RANDOLPH Administration Sodium Chloride 1,000 mls @ 75 mls/hr 06/01/24 15:45 06/02/24 08:54 Saline 0.9% IV Not Given .[id number] RANDOLPH Magnesium Sulfate/Dextrose 1 100 mls @ 100 mls/hr 06/02/24 12:00 gm/ IV Solution IVPB 06/02/24 12:59 ONCE ONE Levothyroxine Sodium 50 mcg 06/02/24 09:00 06/02/24 09:06 Levothyroxine 50 Mcg Tab PO 50 mcg DAILY RANDOLPH Administration Losartan Potassium 25 mg 06/02/24 09:00 06/02/24 09:06 Losartan 25 Mg Tab PO 25 mg DAILY RANDOLPH Administration Naloxone HCl 0.2 mg 06/01/24 15:36 Naloxone 0.4 Mg/Ml 1 Ml Vial IV Q2M PRN Opioid Reversal Non-Formulary Medication 20 mg 06/01/24 15:38 Tadalafil [Tadalafil] PO DAILY PRN E.D. Intake and Output 06/01/24 06/02/24 06/02/24 22:59 06:59 14:59 Intake Total 476 Balance 476 Intake: Oral 476 Other: # Voids 3 Weight 99.79 kg 06/02/24 05:22 06/02/24 05:22
[2024-06-02] MEDS: FLECAINIDE 50 MG TAB PO STA (12:39)
[2024-06-02] MEDS: MAGNESIUM SULFATE-D5W PMX 1 GM in DEXTROSE/WATER 1 100ML.BAG IVPB ONE (12:40)
[2024-06-02] MEDS: METOPROLOL TARTRATE 50 MG TAB PO STA (12:40)
--- NOTE | 2024-06-02 13:04 | P.PN ---
Subjective 63-year-old male came in with complaints of chest discomfort and palpitations. Patient had an ablation about 1 and half year ago after that his atrial fibrillation medications were discontinued and was given flecainide to take on an as-needed basis for symptoms of atrial fibrillation patient did take that medication without any significant help because of which patient came to the hospital patient is in atrial fibrillation/flutter but rate controlled. Patient although feels tired because of symptomatic atrial fibrillation patient is being admitted for monitoring and evaluation by cardiology. Patient was recently treated for upper respiratory infection with steroids and antibiotics. 06/02 Patient seen by cardiology team today. He was given flecainide, magnesium 1 g and increase metoprolol to 50 mg And recommendation if he flips A-fib to sinus rhythm he might be considered for discharge Currently patient denies chest pain or dyspnea. He still in A-fib so far. He still feels fluttering in his neck base. No specific GI/ symptoms no headache dizziness weakness numbness REVIEW OF SYSTEMS: All other systems are negative except those mentioned in the HPI PHYSICAL EXAMINATION: GENERAL: The patient is alert and oriented x3, not in any acute distress. Well developed, well nourished. HEENT: Pupils are round and equally reacting to light. EOMI. No scleral icterus. No conjunctival pallor. Normocephalic, atraumatic. No pharyngeal erythema. No thyromegaly. CARDIOVASCULAR: S1 and S2 present. No murmurs, rubs, or gallops. PULMONARY: Chest is clear to auscultation, no wheezing or crackles. ABDOMEN: Soft, nontender, nondistended, normoactive bowel sounds. No palpable organomegaly. MUSCULOSKELETAL: No joint swelling or deformity. EXTREMITIES: No cyanosis, clubbing, or pedal edema. NEUROLOGICAL: Gross neurological examination did not reveal any focal deficits. SKIN: No rashes. Assessment and plan -Atrial fibrillation/flutter patient is rate controlled continue with anticoagulation monitor overnight cardiology consultation. Given 1 dose of flecainide, increase metoprolol. Give magnesium per museum assistant -Hypothyroidism -Sleep apnea -Depression -Hyperlipidemia For above-mentioned chronic medical problems patient will be resumed on appropriate home medications DVT prophylaxis: On Eliquis Objective - Vital Signs Vital signs: Vital Signs Temp 97.7 F 06/02/24 07:00 Pulse 91 02/16/25 07:00 Resp 16 06/02/24 07:00 BP 125/69 06/02/24 07:00 Pulse Ox 98 06/02/24 07:00 FiO2 Intake & Output 06/01/24 06/02/24 06/02/24 18:59 06:59 18:59 Intake Total 476 Balance 476 Weight 99.79 kg 99.79 kg Intake: Oral 476 Other: # Voids 3 - Labs CBC & Chem 7: 06/02/24 05:22 06/02/24 05:22 Labs: Abnormal Lab Results - Last 24 Hours (Table) 06/01/24 06/02/24 Range/Units 14:04 05:22 Carbon Dioxide 31 H (22-30) mmol/L ALT 57 H (4-49) U/L Total Protein 5.6 L (6.3-8.2) g/dL
[2024-06-03 07:36] VITALS: BP 110/69; PULSE 54; RESP 16; TEMP 97.7
--- NOTE | 2024-06-03 07:58 | P.PN ---
Subjective Progress Note Date: 06/03/24 HISTORY OF PRESENTING ILLNESS: Patient is a 63-year-old male with past medical history of paroxysmal atrial fibrillation and atrial flutter. In 2022 he had ablation for atrial flutter however paroxysmal atrial fibrillation ablation was not performed. He is known to Dr. Rosado. He presents to the [facility] because of palpitation symptoms and he noticed that he was having A-fib. He has been using flecainide and metoprolol as a pill in the pocket strategy however with 50 mg of flecainide and 50 mg of metoprolol his atrial fibrillation could not get controlled therefore he presented to the hospital.: Admission Labs: Troponins were not elevated and labs were essentially within normal limits. Admission EKG: Atrial fibrillation QRS 190 ms, no significant ST-T wave changes concerning for ischemia Imaging: Chest x-ray does not show any signs of pulmonary congestion or consolidation 06/03 Patient seen and examined. Patient remains in sinus rhythm, vital signs are stable. Blood pressure 110/69, heart rate 54, pulse ox 100% on room air. Patient denies chest pain, lightheadedness dizziness, shortness of breath and palpitations. PHYSICAL EXAMINATION: Neck: Brisk carotid upstroke, no jugular venous distention. Lungs: Clear to auscultation. Heart: Irregularly irregular, S1-S2, , no murmur or rub. Abdomen: Soft nontender, positive bowel sounds. Extremities: No edema, intact distal pulses. Neuro: Alert, oritented, no focal deficits. Detailed neuro exam was not performed. ASSESSMENT: # Atrial fibrillation, rate controlled, symptomatic with palpitations # Prior history of atrial flutter status post ablation # Essential hypertension # Obesity # Sleep apnea on CPAP # Occasional alcohol use no smoking PLAN: Patient is cleared for discharge from cardiology on his current cardiac medications Patient to follow-up with Dr. Rosado in 2 weeks. Nurse practitioner note has been reviewed, I agree with documented findings and plan of care. Patient was seen and examined. Objective - Vital Signs Vital signs: Vital Signs Temp 98.2 F 06/03/24 01:50 Pulse 63 06/03/24 02:00 Resp 18 06/03/24 01:50 BP 118/75 06/03/24 01:50 Pulse Ox 100 06/03/24 01:50 FiO2 Intake & Output 06/02/24 06/03/2425 18:59 06:59 18:59 Intake Total 594 Balance 594 Intake: Oral 594 Other: # Voids 2 2 - Labs CBC & Chem 7: 06/02/24 05:22 06/02/24 05:22
--- NOTE | 2024-06-03 09:47 | P.DS ---
Providers Date of admission: 06/01/24 15:37 Expected date of discharge: 06/03/24 Attending physician: Mickey Harvey Consults: 06/01/24 15:36 Consult Physician Routine Consulting Provider: [facility] Reason/Comments: symptomatic atrial fibrillation Do you want consulting provider notified?: Yes Primary care physician: Mickey Harvey [facility] Course: Final Diagnoses: Atrial fibrillation, rate controlled, symptomatic with palpitations, status post initiation of a Medrol Dosepak with Levaquin and a beer. Prior history of atrial flutter status post ablation Essential hypertension Hyperlipidemia Hypothyroidism Obesity, BMI 31 Sleep apnea on CPAP Occasional alcohol use 63-year-old male came in with complaints of chest discomfort and palpitations. Patient had an ablation about 1 and half year ago after that his atrial fibrillation medications were discontinued and was given flecainide to take on an as-needed basis for symptoms of atrial fibrillation patient did take that medication without any significant help because of which patient came to the hospital patient is in atrial fibrillation/flutter but rate controlled. Patient although feels tired because of symptomatic atrial fibrillation patient is being admitted for monitoring and evaluation by cardiology. Patient was recently treated for upper respiratory infection with steroids and antibiotics. Received flecainide and a dose of increased metoprolol. Converted to sinus rhythm. Soft blood pressures yesterday. Patient has been cleared by cardiology for discharge. Patient will be discharged home today in a stable condition with guarded prognosis. The impression and plan of care has been dictated as directed. : I performed a history and examination of this patient, discussed the same with the dictator. I agree with the dictator's note ,documented as a scribe. Any additional findings or plans will be noted. Patient Condition at Discharge: Stable Plan - Discharge Summary Discharge Rx Participant: No New Discharge Prescriptions: Continue Levothyroxine Sodium [Synthroid] 50 mcg PO DAILY Rosuvastatin [Crestor] 20 mg PO HS tadalafiL 20 mg PO DAILY PRN PRN Reason: E.D. Escitalopram [Lexapro] 10 mg PO DAILY Apixaban [Eliquis] 5 mg PO BID Losartan [Cozaar] 25 mg PO DAILY #90 tab carvediloL [Coreg] 3.125 mg PO BID Discharge Medication List Levothyroxine Sodium [Synthroid] 50 mcg PO DAILY 05/27/21 [History] Apixaban [Eliquis] 5 mg PO BID 11/03/22 [History] Escitalopram [Lexapro] 10 mg PO DAILY 11/03/22 [History] Losartan [Cozaar] 25 mg PO DAILY #90 tab 11/08/22 [Rx] carvediloL [Coreg] 3.125 mg PO BID 09/20/23 [History] Rosuvastatin [Crestor] 20 mg PO HS 06/01/24 [History] tadalafiL 20 mg PO DAILY PRN 06/01/24 [History] Follow up Appointment(s)/Referral(s): Mickey Harvey DO [Primary Care Provider] - 1-2 days Patient Instructions/Handouts: A-fib (Atrial Fibrillation) (DC) Discharge Disposition: HOME SELF-CARE
== END 2024-06-03 09:02 | disposition home or self-care (01) ==
LOC: EC 13:36 → 6NMEDSUR 15:37
PROVIDERS: ADMIT Family Medicine; ATTEND Family Medicine
DX: I48.0 Paroxysmal atrial fibrillation (principal); I48.92 Unspecified atrial flutter; E03.9 Hypothyroidism, unspecified; G47.30 Sleep apnea, unspecified; E78.5 Hyperlipidemia, unspecified; F32.A Depression, unspecified; E66.9 Obesity, unspecified; Z68.31 Body mass index [BMI] 31.0-31.9, adult; Z79.01 Long term (current) use of anticoagulants; Z79.890 Hormone replacement therapy; Z79.899 Other long term (current) drug therapy; Z88.8 Allergy status to other drugs, medicaments and biological substances; Z11.52 Encounter for screening for COVID-19; Z11.59 Encounter for screening for other viral diseases; Z98.890 Other specified postprocedural states
CPT/HCPCS: 96361 ×2; 96365; 99285; 36415; 83880; 80053 ×2; 83735; 84484; 85025 ×2; 85610; 85730; 87636; 71046; G0378 ×3; J3475

== ENCOUNTER 2024-06-25 09:50 | Emergency (ER) | payer BC ==
[2024-06-25 09:55] VITALS: TEMP 97.9
--- NOTE | 2024-06-25 10:22 | XR ---
EXAMINATION TYPE: XR chest 2V DATE OF EXAM: 06/25/2024 CLINICAL INDICATION: Male, 63 years old with history of dysrhythmia, TECHNIQUE: Frontal and lateral views of the chest are obtained. COMPARISON: Chest x-ray June 01, 2024 FINDINGS: There is no focal air space opacity, pleural effusion, or pneumothorax seen. The cardiac silhouette size is stable and upper limits of normal. The osseous structures are intact. IMPRESSION: No acute pulmonary process. [facility], , 06/25/2024 10:19 AM
--- NOTE | 2024-06-25 10:50 | ED ---
Arrhythmia/Palpitations HPI - General Source: patient, RN notes reviewed Mode of arrival: ambulatory Limitations: no limitations <Elvie James - Last Filed: 06/25/24 10:49> <Sameer Vogel - Last Filed: 06/25/24 12:18> - General Chief Complaint: Arrhythmia/Palpitations Stated Complaint: Afib Time Seen by Provider: 06/25/24 10:49 - History of Present Illness Initial Comments: Quick [id number] male with history of atrial fibrillation on Eliquis presenting for heart palpitations since last night. Denies chest pain, shortness of breath, or dizziness. (Elvie James) This is a 63-year-old male who presents to the emergency department history of atrial fibrillation. Patient states he is on Eliquis and metoprolol. Patient states he came to the emergency department today because he felt his heart was irregular again. Patient states that has not been running fast but it was ir regular so he took a flecainide and came to the emergency department. Patient denies any chest pain. Patient denies any fever chills or cough. Patient has abdominal pain patient has nausea vomiting diarrhea. Patient denies any shortness of breath or difficulty breathing. (Sameer Vogel) - Related Data Home Medications Medication Instructions Recorded Confirmed Levothyroxine Sodium [Synthroid] 50 mcg PO DAILY 05/27/21 06/01/24 Apixaban [Eliquis] 5 mg PO BID 11/03/22 06/01/24 Escitalopram [Lexapro] 10 mg PO DAILY 11/03/22 06/01/24 carvediloL [Coreg] 3.125 mg PO BID 09/20/23 06/01/24 Rosuvastatin [Crestor] 20 mg PO HS 06/01/24 06/01/24 tadalafiL 20 mg PO DAILY PRN 06/01/24 06/01/24 Previous Rx's Medication Instructions Recorded Losartan [Cozaar] 25 mg PO DAILY #90 tab 11/08/22 Allergies Allergy/AdvReac Type Severity Reaction Status Date / Time methylprednisolone AdvReac high heart Verified 06/25/24 09:55 [From Medrol] rate/fluttering/a-fib prednisone AdvReac high heart Verified 06/25/24 09:55 rate/fluttering/a-fib Review of Systems ROS Other: All systems not noted in ROS Statement are negative. <Elvie James - Last Filed: 06/25/24 10:49> ROS Other: All systems not noted in ROS Statement are negative. <Sameer Vogel - Last Filed: 06/25/24 12:18> ROS Statement: Those systems with pertinent positive or pertinent negative responses have been documented in the HPI. Past Medical History Past Medical History: Atrial Fibrillation, Eye Disorder, Sleep Apnea/CPAP/BIPAP, Thyroid Disorder Additional Past Medical History / Comment(s): A-Fib past 6 months. Sl macular degeneration. Uses CPAP. History of Any Multi-Drug Resistant Organisms: None Reported Past Surgical History: Orthopedic Surgery Additional Past Surgical History / Comment(s): Bilat foot surg, bilat knees as child. Colonoscopy Past Anesthesia/Blood Transfusion Reactions: No Reported Reaction Past Psychological History: Anxiety Smoking Status: Never smoker Past Alcohol Use History: Occasional Past Drug Use History: None Reported - Past Family History Father Family Medical History: Cancer Additional Family Medical History / Comment(s): Colon cancer. <Elvie James - Last Filed: 06/25/24 10:49> General Exam Limitations: no limitations <Elvie James - Last Filed: 06/25/24 10:49> <Sameer Vogel - Last Filed: 06/25/24 12:18> - General Exam Comments Initial Comments: Visual Physical Exam Vital signs reviewed General: Well-appearing, nontoxic, no acute distress. Head: Normocephalic, atraumatic Eyes: PERRLA, EOMI ENT: Airway patent Chest: Nonlabored breathing Skin: No visual rash, normal skin tone Neuro: Alert and oriented 3 Musculoskeletal: No gross abnormalities (Elvie James) GENERAL: Patient is well-developed and well-nourished. Patient is nontoxic and well- hydrated and is in no acute distress. ENT: Neck is soft and supple. No significant lymphadenopathy is noted. Oropharynx is clear. Moist mucous membranes. Neck has full range of motion without eliciting any pain. EYES: The sclera were anicteric and conjunctiva were pink and moist. Extraocular movements were intact and pupils were equal round and reactive to light. Eyelids were unremarkable. PULMONARY: Unlabored respirations. Good breath sounds bilaterally. No audible rales rhonchi or wheezing was noted. CARDIOVASCULAR: Heart rate is irregular but at about 80 beats a minute ABDOMEN: Soft and nontender with normal bowel sounds. SKIN: Skin is clear with no lesions or rashes and otherwise unremarkable. NEUROLOGIC: Patient is alert and oriented x3. Cranial nerves II through XII are grossly intact. Motor and sensory are also intact. Normal speech, volume and content. Symmetrical smile. MUSCULOSKELETAL: Normal extremities with adequate strength and full range of motion. LYMPHATICS: No significant lymphadenopathy is noted PSYCHIATRIC: Normal psychiatric evaluation. (Sameer Vogel) Course Vital Signs 06/25/24 09:51 Temperature 97.9 F Pulse Rate 73 Respiratory 18 Rate Blood Pressure 123/77 O2 Sat by Pulse 99 Oximetry Medical Decision Making <Elvie James - Last Filed: 06/25/24 10:49> - Lab Data Result diagrams: 06/25/24 10:57 06/25/24 10:57 <Sameer Vogel - Last Filed: 06/25/24 12:18> - Medical Decision Making I completed the quick note portion of this chart signed Elvie James PA-C (Elvie James) EKG is interpreted by myself. EKG shows A-fib at 84 bpm QRS is 94 QT interval is 325 QTc is 367. Patient EKG shows no ST segment elevation or depression. (Sameer Vogel) - Lab Data Lab Results 06/25/24 06/25/24 06/25/24 Range/Units 10:57 10:57 10:57 WBC 6.8 (3.8-10.6) k/uL RBC 5.36 (4.30-5.90) m/uL Hgb 15.6 (13.0-17.5) gm/dL Hct 50.7 (39.0-53.0) % MCV 94.5 (80.0-100.0) fL MCH 29.1 (25.0-35.0) pg MCHC 30.8 L (31.0-37.0) g/dL RDW 13.3 (11.5-15.5) % Plt Count 262 (150-450) k/uL MPV 6.8 Neutrophils % 69 % Lymphocytes % 20 % Monocytes % 7 % Eosinophils % 2 % Basophils % 1 % Neutrophils # 4.6 (1.3-7.7) k/uL Lymphocytes # 1.4 (1.0-4.8) k/uL Monocytes # 0.5 (0-1.0) k/uL Eosinophils # 0.1 (0-0.7) k/uL Basophils # 0.0 (0-0.2) k/uL PT 10.8 (10.0-12.5) sec INR 1.0 (<1.2) APTT 24.5 (22.0-30.0) sec Sodium 138 (137-145) mmol/L Potassium 4.5 (3.5-5.1) mmol/L Chloride 105 (98-107) mmol/L Carbon Dioxide 25 (22-30) mmol/L Anion Gap 8 mmol/L BUN 18 (9-20) mg/dL Creatinine 0.71 (0.66-1.25) mg/dL Est GFR (CKD-EPI)AfAm >90 (>60 ml/min/1.73 sqM) Est GFR (CKD-EPI)NonAf >90 (>60 ml/min/1.73 sqM) Glucose 111 H (74-99) mg/dL Calcium 9.2 (8.4-10.2) mg/dL Magnesium 2.1 (1.6-2.3) mg/dL Total Bilirubin 0.7 (0.2-1.3) mg/dL AST 27 (17-59) U/L ALT 34 (4-49) U/L Alkaline Phosphatase 58 (38-126) U/L Troponin I (0.000-0.034) ng/mL Total Protein 6.3 (6.3-8.2) g/dL Albumin 4.1 (3.5-5.0) g/dL 06/25/24 Range/Units 10:57 WBC (3.8-10.6) k/uL RBC (4.30-5.90) m/uL Hgb (13.0-17.5) gm/dL Hct (39.0-53.0) % MCV (80.0-100.0) fL MCH (25.0-35.0) pg MCHC (31.0-37.0) g/dL RDW (11.5-15.5) % Plt Count (150-450) k/uL MPV Neutrophils % % Lymphocytes % % Monocytes % % Eosinophils % % Basophils % % Neutrophils # (1.3-7.7) k/uL Lymphocytes # (1.0-4.8) k/uL Monocytes # (0-1.0) k/uL Eosinophils # (0-0.7) k/uL Basophils # (0-0.2) k/uL PT (10.0-12.5) sec INR (<1.2) APTT (22.0-30.0) sec Sodium (137-145) mmol/L Potassium (3.5-5.1) mmol/L Chloride (98-107) mmol/L Carbon Dioxide (22-30) mmol/L Anion Gap mmol/L BUN (9-20) mg/dL Creatinine (0.66-1.25) mg/dL Est GFR (CKD-EPI)AfAm (>60 ml/min/1.73 sqM) Est GFR (CKD-EPI)NonAf (>60 ml/min/1.73 sqM) Glucose (74-99) mg/dL Calcium (8.4-10.2) mg/dL Magnesium (1.6-2.3) mg/dL Total Bilirubin (0.2-1.3) mg/dL AST (17-59) U/L ALT (4-49) U/L Alkaline Phosphatase (38-126) U/L Troponin I <0.012 (0.000-0.034) ng/mL Total Protein (6.3-8.2) g/dL Albumin (3.5-5.0) g/dL Disposition <Elvie James - Last Filed: 06/25/24 10:49> Is patient prescribed a controlled substance at d/c from ED?: No Time of Disposition: 12:15 <Sameer Vogel - Last Filed: 06/25/24 12:18> Clinical Impression: Atrial fibrillation Disposition: HOME SELF-CARE Condition: Good Instructions (If sedation given, give patient instructions): A-fib (Atrial Fibrillation) (ED) Referrals: Mickey Harvey DO [Primary Care Provider] - 1-2 days
[2024-06-25 11:08] LABS: Basophils % (A) 1 %; Eosinophils # (A) 0.1 k/uL (0-0.7); Eosinophils % (A) 2 %; HCT 50.7 % (39.0-53.0); HGB 15.6 gm/dL (13.0-17.5); Lymphocytes # (A) 1.4 k/uL (1.0-4.8); Lymphocytes % (A) 20 %; MCH 29.1 pg (25.0-35.0); MCHC 30.8 g/dL (31.0-37.0); MCV 94.5 fL (80.0-100.0); Mean Platelet Volume 6.8; Monocytes # (A) 0.5 k/uL (0-1.0); Monocytes % (A) 7 %; Neutrophils # (A) 4.6 k/uL (1.3-7.7); Neutrophils % (A) 69 %; Platelet Count 262 k/uL (150-450); RBC 5.36 m/uL (4.30-5.90); RDW 13.3 % (11.5-15.5); WBC 6.8 k/uL (3.8-10.6)
[2024-06-25 11:18] LABS: Partial Thromboplastin Time 24.5 sec (22.0-30.0); Prothrombin Time 10.8 sec (10.0-12.5)
[2024-06-25 11:27] LABS: ALT 34 U/L (4-49); AST 27 U/L (17-59); African American GFR (CKD) >90 (>60 ml/min/1.73 sqM); Albumin 4.1 g/dL (3.5-5.0); Alkaline Phosphatase 58 U/L (38-126); Anion Gap 8 mmol/L; Blood Urea Nitrogen 18 mg/dL (9-20); Calcium 9.2 mg/dL (8.4-10.2); Carbon Dioxide 25 mmol/L (22-30); Chloride 105 mmol/L (98-107); Glucose 111 mg/dL (74-99); Magnesium 2.1 mg/dL (1.6-2.3); Non-African American GFR(CKD) >90 (>60 ml/min/1.73 sqM); Potassium 4.5 mmol/L (3.5-5.1); Sodium 138 mmol/L (137-145); Total Bilirubin 0.7 mg/dL (0.2-1.3); Total Protein 6.3 g/dL (6.3-8.2)
[2024-06-25 12:44] VITALS: BP 116/80; PULSE 75; RESP 20
== END 2024-06-25 12:44 | disposition home or self-care (01) ==
LOC: EC 09:50
DX: I48.91 Unspecified atrial fibrillation (principal)
CPT/HCPCS: 36415; 71046; 80053; 83735; 84484; 85025; 85610; 85730; 93005; 99285